=== PATIENT | male | born 1945 | race Caucasian/White ===

== ENCOUNTER → 2016-11-27 | Outpatient (CLI) | payer BC ==
[~2016-11-27] MED LIST: CALC600T9 PO; CHOL1000 PO; CYAN10004 PO; MAGN1TAB41 PO; MAGN250T8 PO; MULTTAB58 PO; OXYC-57 PO; SILO8CAP PO
[2016-11-27 10:05] LABS: CHOLESTEROL/HDL RATIO 3.3
== END | disposition home or self-care (01) ==
LOC: C.LAB1850 08:19
PROVIDERS: ATTEND Internal Medicine
DX: E21.3 Hyperparathyroidism, unspecified (principal); E55.9 Vitamin D deficiency, unspecified; Z00.00 Encounter for general adult medical examination without abnormal findings; E78.5 Hyperlipidemia, unspecified; E53.8 Deficiency of other specified B group vitamins

== ENCOUNTER → 2016-12-05 | Outpatient (CLI) | payer BC ==
[~2016-12-05] MED LIST changes: -MAGN1TAB41 PO
[2016-12-05 16:50] LABS: BASO % 0.4 %; BASO ABS # 0.04 K/uL (0-0.2); COMPLETE YES; HEMATOCRIT 43.4 % (42-52); IG% 0.4 %; LYMPH % 16.5 %; MEAN CELL VOLUME 91.9 fL (80-100); MEAN CORPUSCULAR HEMOGLOBIN 31.1 pg (25-34); MEAN CORPUSCULAR HGB CONC 33.9 g/dl (32-36); MEAN PLATELET VOLUME 11.6 fL (7.4-10.4); MONO % 6.9 %; NEUT % 63.8 %; PLATELET COUNT 325 K/uL (130-400); RED BLOOD COUNT 4.72 M/uL (4.7-6.1)
[2016-12-05 18:44] LABS: ALT/SGPT 29 U/L (12-78); AST/SGOT 12 U/L (15-37); BLOOD UREA NITROGEN 31 mg/dl (7-18); BUN/CREATININE RATIO 25.9 (10-20); CARBON DIOXIDE 25 mmol/L (21-32); CHLORIDE 110 mmol/L (98-107); GLUCOSE 101 mg/dl (70-99); POTASSIUM 4.4 mmol/L (3.5-5.1); SODIUM 142 mmol/L (136-145)
[2016-12-05 19:10] LABS: ALB/GLOB RATIO 1.3 (0.9-2)
[2016-12-05 19:11] LABS: ALKALINE PHOSPHATASE 64 U/L (45-117)
== END | disposition home or self-care (01) ==
LOC: C.LAB1850 15:35
PROVIDERS: ATTEND Internal Medicine
DX: E21.3 Hyperparathyroidism, unspecified (principal)

== ENCOUNTER → 2016-12-16 | Day surgery (SDC) | payer BC ==
[2016-12-10 08:06] VITALS: Ht 177.8 cm; Wt 90.9 kg
[~2016-12-16] VITALS: Ht 177.8 cm; Wt 90.9 kg
[~2016-12-16] MED LIST changes: +LIDOCAINE HCL 2% 2 ML VIAL (20MG/ML) ONE; +PHENYLEPHRINE 100MCG/ML 5ML SYR ONE; +PROPOFOL IV EMULSION 10 MG/ML 20 ML VIAL IV ONE; -SILO8CAP PO; +SODIUM CHLORIDE 0.9% 500ML 500 ML IV ONE
--- NOTE | 2016-12-16 15:22 | Endo History and Physical ---
History & Physical Date of Service: Dec 16, 2016. Chief Complaint: Screening Referring Physician: Ector Del Rio History of Present Illness 71 yo CM who presents for screening colonoscopy. Past Medical History Male Genitourinary Prob. Past Surgical History Hx Cardiac Surgery: No Hx Internal Defibrillator: No Hx Pacemaker: No Hx Abdominal Surgery: Yes (HERNIA REPAIR X3, COLLAPSED BOWEL REPAIR) Hx of Implantable Prosthesis: No Hx Post-Op Nausea and Vomiting: No Hx Cancer Surgery: No Hx Thoracic Surgery: No Hx Orthopedic: No Hx Urinary Tract Surgery: No Family History None Social History Smoking Status: Never Smoker Hx Substance Use: No Hx Alcohol Use: No Allergies Coded Allergies: No Known Allergies (Unverified , 12/10/16) Current Medications Reported Home Medications Medications Dose Route/Sig Max Daily Dose Days Date Category Vitamin B-12 1000 Mcg (Cyanocobalamin) 1,000 Mcg Tab 1,000 Mcg PO QAM 08/09/15 Reported Magnesium (Magnesium Oxide (Mg Supplement) 250 Mg Tab 1 Tab PO QAM 08/09/15 Reported Multivitamin (Multiple Vitamin) 1 Tab Tab 1 Tab PO QAM 08/09/15 Reported Calcium + D (Calcium Carbonate-Vitamin D) 1 Tab Tab 1 Tab PO QAM 08/09/15 Reported Vitamin D3 (Cholecalciferol) 1,000 Unit Tab 1 Tab PO QAM 08/09/15 Reported Vital Signs Weight (Kilograms): 90.91 Height (Feet): 5 Height (Inches): 10 Date Time Temp Pulse Resp B/P Pulse Ox O2 Delivery O2 Flow Rate FiO2 12/16/16 14:37 36.5 70 16 144/70 96 Room Air Physical Exam General Appearance: WD/WN, no apparent distress Respiratory/Chest: Auscultation: breath sounds normal Cardiovascular: Heart Auscultation: RRR Abdomen: Bowel Sounds: normal Inspection & Palpation: soft, non-distended, no tenderness, guarding & rebound Assessment and Plan Assessment: 71 yo CM who presents for screening colonoscopy. Plan: Proceed with colonoscopy.
--- NOTE | 2016-12-16 16:06 | Discharge Instructions ---
Endoscopy Patient Instructions Date / Procedure(s) Performed Dec 16, 2016. Colonoscopy Allergy Information Coded Allergies: No Known Allergies (Unverified , 12/10/16) Discharge Date / Findings Dec 16, 2016. Colon polyps Diverticulosis Internal hemorrhoids Medication Instructions OK to resume all medications today as prescribed Reported Home Medications Medications Dose Route/Sig Max Daily Dose Days Date Category Vitamin B-12 1000 Mcg (Cyanocobalamin) 1,000 Mcg Tab 1,000 Mcg PO QAM 08/09/15 Reported Magnesium (Magnesium Oxide (Mg Supplement) 250 Mg Tab 1 Tab PO QAM 08/09/15 Reported Multivitamin (Multiple Vitamin) 1 Tab Tab 1 Tab PO QAM 08/09/15 Reported Calcium + D (Calcium Carbonate-Vitamin D) 1 Tab Tab 1 Tab PO QAM 08/09/15 Reported Vitamin D3 (Cholecalciferol) 1,000 Unit Tab 1 Tab PO QAM 08/09/15 Reported Provider Instructions Activity Restrictions - No exercising or heavy lifting for 24 hours. - Do not drink alcohol the day of the procedure. - Do not drive a car or operate machinery until the day after the procedure. - Do not make any important decisions or sign important papers in 24 hours after the procedure. Following Day: - Return to full activity which may include returning to work/school. Diet Start your diet with liquids and light foods (jello, soup, juice, toast). Then eat your usual diet if not nauseated. Treatment For Common After Affects For mild abdominal pain, bloating, or excessive gas: - Rest - Eat lightly - Lie on right side Follow-Up Information Follow-up with Ector Del Rio as scheduled Anesthesia Information What You Should Know You have had a procedure that required some medicine to reduce anxiety and discomfort. This treatment is called moderate sedation. After receiving the treatment, you may be sleepy, but you will be able to breathe on your own. The effects of the treatment may last for several hours. Follow these instructions along with Activity/Diet recommendations noted above: * Do NOT do anything where dizziness or clumsiness would be dangerous. * Rest quietly at home today, then you can be up and about tomorrow. * Have a responsible person stay with you the rest of today. * You may have had an I.V. today. If so, you may take the dressing off later today. Recommendations Call your doctor if: * Trouble breathing * Continuous vomiting for more than 24 hours * Temperature above 101 degrees * Severe abdominal pain or bloating * Pain not relieved by pain medicine ordered * There is increased drainage or redness from any incision * A large amount of rectal bleeding greater than 2-3 tablespoons. (If you had a polyp/s removed or have hemorrhoids, a small amount of blood - from the rectum is to be expected.) * You have any unanswered questions or concerns. IN THE EVENT OF A SERIOUS EMERGENCY, GO TO THE NEAREST EMERGENCY ROOM Your discharge instructions were prepared by provider Raymundo Mcclure. Patient Instructions Signature Page Oscar Solano Patient (or Guardian) Signature/Date: I have read and understand the instructions given to me by my caregivers. Caregiver/RN/Doctor Signature/Date: The above-named patient and/or guardian has received patient instructions on this date. + Original Patient Signature Page (only) stays with chart. Please make copy for patient.
--- NOTE | 2016-12-16 16:09 | Anesthesiology Progress Note ---
Anesthesia Post Op Note Date & Time Dec 16, 2016 at 16:08 Vital Signs Vital Signs Past 12 Hours Date Time Temp Pulse Resp B/P Pulse Ox O2 Delivery O2 Flow Rate FiO2 12/16/16 14:37 36.5 70 16 144/70 96 Room Air Notes Mental Status: alert / awake / arousable, participated in evaluation Pt Amnestic to Procedure: Yes Nausea / Vomiting: adequately controlled Pain: adequately controlled Airway Patency, RR, SpO2: stable & adequate BP & HR: stable & adequate Hydration State: stable & adequate Anesthetic Complications: no major complications apparent
--- NOTE | 2016-12-16 16:27 | GI REPORT ---
Procedure Date: 12/16/2016 3:10 PM Procedure: Colonoscopy Indications: Screening for colorectal malignant neoplasm Medicines: Monitored Anesthesia Care Complications: No immediate complications. Estimated Blood Loss: Estimated blood loss: none. Procedure: Pre-Anesthesia Assessment: - Prior to the procedure, a History and Physical was performed, and patient medications and allergies were reviewed. The patient's tolerance of previous anesthesia was also reviewed. The risks and benefits of the procedure and the sedation options and risks were discussed with the patient. All questions were answered, and informed consent was obtained. Prior Anticoagulants: The patient has taken no previous anticoagulant or antiplatelet agents. ASA Grade Assessment: II - A patient with mild systemic disease. After reviewing the risks and benefits, the patient was deemed in satisfactory condition to undergo the procedure. After I obtained informed consent, the scope was passed under direct vision. Throughout the procedure, the patient's blood pressure, pulse, and oxygen saturations were monitored continuously. The scope was introduced through the anus and advanced to the terminal ileum. The colonoscopy was performed without difficulty. The patient tolerated the procedure well. The quality of the bowel preparation was good. The terminal ileum, ileocecal valve, appendiceal orifice, and rectum were photographed. Findings: Four sessile polyps were found in the transverse colon and in the ascending colon. The polyps were 5 to 7 mm in size. These polyps were removed with a hot snare. Resection and retrieval were complete. A 3 mm polyp was found in the ascending colon. The polyp was sessile. The polyp was removed with a cold biopsy forceps. Resection and retrieval were complete. To prevent bleeding after the polypectomy, two hemostatic clips were successfully placed (MR conditional). There was no bleeding at the end of the procedure. Multiple small-mouthed diverticula were found in the sigmoid colon. Non-bleeding internal hemorrhoids were found during retroflexion. The hemorrhoids were small. Impression: - Four 5 to 7 mm polyps in the transverse colon and in the ascending colon, removed with a hot snare. Resected and retrieved. - One 3 mm polyp in the ascending colon, removed with a cold biopsy forceps. Resected and retrieved. Clips (MR conditional) were placed. - Diverticulosis in the sigmoid colon. - Non-bleeding internal hemorrhoids. Recommendation: - Resume previous diet. - Continue present medications. - Repeat colonoscopy for surveillance based on pathology results. - Return to primary care physician as previously scheduled. Raymundo Mcclure, DO 12/16/2016 4:26:59 PM This report has been signed electronically. Note Initiated On: 12/16/2016 3:10 PM
[2016-12-16 16:36] VITALS: BP 142/82; PULSE 66; O2SAT 99
== END | disposition home or self-care (01) ==
LOC: C.GI 14:11
PROVIDERS: ATTEND Internal Medicine
DX: Z12.11 Encounter for screening for malignant neoplasm of colon (principal); D12.2 Benign neoplasm of ascending colon; D12.3 Benign neoplasm of transverse colon; K57.31 Diverticulosis of large intestine without perforation or abscess with bleeding; K64.8 Other hemorrhoids

== ENCOUNTER → 2017-01-16 | Outpatient (CLI) | payer BC ==
[~2017-01-16] MED LIST changes: -LIDOCAINE HCL 2% 2 ML VIAL (20MG/ML) ONE; -PHENYLEPHRINE 100MCG/ML 5ML SYR ONE; -PROPOFOL IV EMULSION 10 MG/ML 20 ML VIAL IV ONE; -SODIUM CHLORIDE 0.9% 500ML 500 ML IV ONE
== END | disposition home or self-care (01) ==
LOC: C.LAB1850 11:46
PROVIDERS: ATTEND Internal Medicine Endocrinology, Diabetes & Metabolism
DX: M81.0 Age-related osteoporosis without current pathological fracture (principal)

== ENCOUNTER → 2017-01-17 | Outpatient (CLI) | payer BC | END | disposition home or self-care (01) | LOC: C.LABPBG 13:33 | PROVIDERS: ATTEND Neuromusculoskeletal Medicine & OMM | DX: L30.9 Dermatitis, unspecified (principal); R21 Rash and other nonspecific skin eruption ==

== ENCOUNTER → 2017-03-11 | Outpatient (CLI) | payer BC | END | disposition home or self-care (01) | LOC: C.MAMM 10:08 | PROVIDERS: ATTEND Internal Medicine Endocrinology, Diabetes & Metabolism | DX: E21.3 Hyperparathyroidism, unspecified (principal) ==

== ENCOUNTER → 2017-04-08 | Outpatient (CLI) | payer BC | END | disposition home or self-care (01) | LOC: C.LABPBG 07:37 | PROVIDERS: ATTEND Internal Medicine Endocrinology, Diabetes & Metabolism | DX: M81.0 Age-related osteoporosis without current pathological fracture (principal) ==

== ENCOUNTER → 2017-04-24 | Outpatient (CLI) | payer BC | END | disposition home or self-care (01) | LOC: C.LABPBG 09:33 | PROVIDERS: ATTEND Internal Medicine Endocrinology, Diabetes & Metabolism | DX: N25.81 Secondary hyperparathyroidism of renal origin (principal); E55.9 Vitamin D deficiency, unspecified; K90.0 Celiac disease; M81.0 Age-related osteoporosis without current pathological fracture; S32.000A Wedge compression fracture of unspecified lumbar vertebra, initial encounter for closed fracture; X58.XXXA Exposure to other specified factors, initial encounter ==

== ENCOUNTER → 2017-05-14 | Outpatient (CLI) | payer BC ==
[~2017-05-14] VITALS: Ht 175.3 cm; Wt 92.7 kg
[2017-05-14 08:49] VITALS: BP 119/74; PULSE 62; Ht 175.3 cm; Wt 92.7 kg
== END | disposition home or self-care (01) ==
LOC: C.NEUR 08:13
PROVIDERS: ATTEND Internal Medicine Pulmonary Disease
DX: G47.33 Obstructive sleep apnea (adult) (pediatric) (principal)

== ENCOUNTER → 2017-06-25 | Outpatient (CLI) | payer BC ==
--- NOTE | 2017-06-26 06:38 | PAP/PSG TECHNICIAN REPORT ---
[facility] Cloth Winder Polysomnogram Report Study name: None Report date: 06/26/2017 Study date: 06/25/2017 Referring Physician: MAYUR CREWS DO, DO Name: MARYLIN RAMIREZ Interpreting Physician: Mayur Crews D.O. Date of : 1945 Cloth Winder: Emma Pope [facility]. Sex: Male Age: 71 Study Type: PSG Weight: 204 lbs Height: 71 years, Height 5' 9" BMI: 30.12 Medications: CLOBETASOL PROPIONATE 0.05% EX CREAM, TRAIMCINOLONE ACETONIDE 0.1% EX CREAM, SILDENAFIL CITRATE 20 MG, NYSTATIN [id number] UNIT/GM EX CREAM, MULTI VITS, VIT B-12 500 MCG, CALTITIOL 0.5 MCG, ECONAZOLE NITRATE 1% EX CREAM, FLUCONAZOLE 200 MG, VIT D 1000 UNIT, CALCIUM+D 600-200 MG-UNIT Patient History 71 yr-old male here for a baseline/split study. He has a history of daytime sleepiness, snoring, frequent awakenings, and witnessed apneas. His Labadie scale is 14. The test was started on room air. ETCO2 testing was not utilized during this study. Room 1 Parameters Monitored NPSG: E1-M2, E2-M1, Fp1-M2, Fp2-M1, F3-M2, F4-M2, F4-M1, C3-M2, C4-M2, C4-M1, O1-M2, O2-M2, O2-M1, T3-M2, T4-M1, P3-M2, P4-M1, CHIN1, CHIN2, HR, EKG, Legs, PFLOW, SNOR, FLOW, CFLOW, Tidal Volume, THOR, ABDO, SpO2, PLTH, CPRESS, ETCO2 Wave, ETCO2, pH Sleep Architecture Sleep Stages Time at Lights Off 10:18:54 PM STAGES Time (min.) TST (%) Time at Lights On 5:31:24 AM Wake 121.5 -- Total Recording Time (TRT) 432.50 min. N1 29.0 9 Total Sleep Period (TSP) 415.5 min. N2 220.5 71 Total Sleep Time (TST) 311.0min. N3 0.0 0 Awake Time 121.5 min. REM 61.5 20 Wake after Sleep Onset 104.5 min. Sleep Efficiency (SE) 72 % Sleep Onset Latency (DEON) 17.0 min. Number of Stage 1 Shifts None Awakenings 22 Stage Changes 92 Number of REM periods 9 REM 61.5 20 REM Latency 103.0 min. NREM 249.5 80 Body Position Analysis Supine Right Left Side Prone Vertical Total Sleep Time (min.) 156.1 145.7 47.0 192.74 0.0 0.0 Total Sleep Time (%) 38% 47% 15% 62 0% N/A% Total Sleep Time REM (min.) 25.5 25.5 10.5 None 0.0 0.0 Total Sleep Time NREM (min.) 92.8 120.2 36.5 None 0.0 0.0 Intermittent Wake (min.) 37.8 55.4 28.2 None 0.0 0.0 Total Sleep Period (%) 37% None None None None None Arousals Myoclonus (PLM) * Events Count Index Events Count Index Spontaneous 15 3 Events Awake (PLMW) 89 44.0 Respiratory 37 8.3 Events Asleep w/ Arousal (PLMA) 13 2.5 PLM 13 3 Events Asleep w/o Arousal (PLMS) 192 37.0 Snoring 9 2 Total Asleep 205 39.5 Total 73 14 Total 294 41 Respiratory Analysis * CA OA MA CH H RERA Total Count 1 48 0 0 88 11 137 Index 0.2 9.3 0.0 0 17.0 2 28.6 Mean Duration 18.3 21.3 0.0 0.00 23.6 20.2 22.6 Longest Duration 18.3 71.1 0.0 0.00 0.0 26.0 71.1 Respiratory Event Summary Total Supine ~Supine Right Left Prone REM NREM Apneas Count 49 44 5 5 0 N/A 12 37 Index 9.5 22 2 2.1 0.0 N/A 12 9 Hypopneas (4% Desat) Count 88 62 26 16 10 N/A 34 54 Index 17.0 31.5 8 6.6 12.8 N/A 33.2 13.0 Apneas & All Hypopneas Count 137 106 31 21 10 N/A 46 91 Index 26.4 54 10 9 13 N/A 44.9 21.9 Respiratory Events (Watch Crystal Cutter+All Hyp+RERA) Count 137 110 38 25 13 N/A 46 91 Index 28.6 56 12 10.3 16.6 N/A 45.9 24.3 Respiratory Related Arousal Count 37 110 13 9 4 N/A 14 29 Index 8.3 15 4 4 5 N/A 14 7 Snoring Analysis Supine Right Left Prone REM NREM Total Snore duration 46.5 min Snores count 772 597 452 N/A 403 1,418 1,821 Snore mean duration 1.5 Sec Snores index 392 246 577 N/A 393.2 341.0 351.3 TST with snoring (%) 15.0% Desaturation Event Summary: Minimum %SpO2 Event Count Mean/Min/Max Duration(sec.) Desaturation Index % Time In Bed > 90 179 25.0 / 4.8 / 60.0 31.1 84.3 86 - 90 5 19.1 / 14.5 / 23.8 4.9 15.0 81 - 85 0 N/A 0.0 0.8 76 - 80 0 N/A 0.0 0.0 71 - 75 0 N/A 0.0 0.0 66 - 70 0 N/A 0.0 0.0 61 - 65 0 N/A 0.0 0.0 56 - 60 0 N/A 0.0 0.0 51 - 55 0 N/A 0.0 0.0 < 50 0 N/A 0.0 0.0 Total REM NREM Awake <50% 0.0 min. 0.0 min. 0.0 min. 0.0 min. 51 - 60% 0.0 min. 0.0 min. 0.0 min. 0.0 min. 61 - 70% 0.0 min. 0.0 min. 0.0 min. 0.0 min. 71 - 80% 0.0 min. 0.0 min. 0.0 min. 0.0 min. 81 - 90% 64.5 min. 13.0 min. 35.4 min. 16.2 min. 91 - 100% 345.2 min. 48.5 min. 214.1 min. 82.5 min. Average 92 92 92 92 Minimum SpO2 81 81 82 84 Desaturation Event Index 25.1 42.9 23.1 21.2 # Desat. Events below 89% 47 22 17 8 Time(%) with Saturation below 89% 3.1 1.6 0.8 0.7 Time(min.) with Saturation below 89% 12.7 6.5 3.1 3.0 Time (mins) REM (mins) NREM (mins) % of TST SpO2 Below 90% 110 33 N77 6.7 SpO2 Below 88% 16 0 0 2 Heart Rate Analysis Min (bpm) Max (bpm) Average (bpm) Awake 42 127 61 NREM 47 88 56 REM 40 79 53 Overall 40 88 56 Supplemental O2 Values Minimum O2 level: None Value Start Time End Time Cloth Winder Comments Mr. Ramirez slept in the right, left, and supine positions. Occasional cardiac arrhythmias were noted (please refer to the print out). PLMs were noted. No bruxism noted. Snoring was noted and scored as a 2 on a scale of 1 through 5. (0=no snoring, 5=snoring loud enough to be heard through a closed door or down the [address] way) He did not meet specific Split-Night criteria during the diagnostic portion of this study. He awoke to use the restroom four times during the night. Mr. Ramirez stated that he slept about the same as usual. The final report will be interpreted and signed by a sleep physician. The completed physician report will then be placed in the patient medical record. Therapy (cm H2O) 0 TIB (min.) 432.5 TST (min.) 311.0 Sleep Onset (min.) 17.0 REM Onset From Sleep (min.) 103.0 Sleep Efficiency % 72 Wakefulness (%) 28 Wakefulness (min.) 121.5 NREM 1 (%) 9 NREM 1 (min.) 29.0 NREM 2 (%) 71 NREM 2 (min.) 220.5 NREM 3 (%) 0 NREM 3 (min.) 0.0 REM (%) 20 REM (min.) 61.5 # Arousals 73 Arousal Index 14 # Snore 1,821 Snore Index 351.3 AHI 26.4 AHI Supine 54 AHI Non-Supine 10 NREM AHI 21.9 REM AHI 44.9 RDI 28.6 # Obstructive Apnea 48 # Central Apnea 1 # Mixed Apnea 0 # Hypopneas 88 RERAs 11 Total Respiratory Events 151 Time Below SpO2 89% (min.) 9.6 Mean NREM SpO2 (%) 92 Mean REM SpO2 (%) 92 Mean Sleep SpO2 (%) 92 Min NREM SpO2 (%) 82 Min REM SpO2 (%) 81 Position Supine (min.) 156.1 Position Non-supine (min.) 192.7 LM Index Sleep 39.5 LM Index NREM 47.9 LM Index REM 5.9 Mean Heart Rate (bpm) 56 Min Heart Rate (bpm) 40
--- NOTE | 2017-06-28 11:01 | Sleep Study ---
Sleep Study Report Date of Service: 06/25/2017 Sleep Study Report Clinical data: Patient is a 71-year-old male with a history of snoring, disturbed nocturnal sleep, and observed apneas. His Belmont score is 14 out of a possible 24. His BMI is 30.12. He is referred by Dr. Ector Del Rio. Sleep architecture: The total sleep period is 415.5 minutes. The total sleep time was 311.0 minutes. Sleep efficiency was moderately reduced to 72 percent. Sleep latency was normal at 17 minutes. Wake after sleep onset was elevated 104.5 minutes. The REM latency was 103 minutes. Sleep consisted of stage N1 9 percent, stage N2 71 percent, stage N3 0 percent, and stage REM 20 percent. Arousal data: Patient had a total of 73 arousals including 15 spontaneous arousals, 37 respiratory arousals, 13 PLM arousals, and 9 snoring arousals. The arousal index was 14. PLM data: The patient had a total of 205 periodic limb movements of sleep for a PLM index of 39.5. There were 13 arousals associated with limb movements for a PLM arousal index of only 2.5. EKG: The underlying cardiac rhythm was normal sinus. The cardiac rates ranged from 40 to 88 beats per minute. The average heart rate was 56 beats per minute. There were a mild number of extrasystoles that appeared to be PACs. Respiratory data: The patient had a total of 137 respiratory events including 1 central apnea, 48 obstructive apneas, and 88 hypopneas. Hypopneas were scored according to the 4 percent desaturation rule. He also had 11 RERAs. The apnea-hypopnea index was moderately elevated at 26.4 events per hour. The mean duration of the apneas was 21.3 seconds. The mean duration of the hypopneas was 23.6 seconds. These results suggest moderate sleep apnea. Oximetry data: The average saturation for the night was 92 percent. The minimum saturation was 81 percent. The patient had a total of 12.7 minutes with saturations less than 89 percent. Acute Care Surgeon comments: The patient slept on the right, left, and supine positions. Occasional cardiac arrhythmias were noted. PLMS were noted. No bruxism noted. Snoring was noted and scored as a 2 on a scale of 1 through 5. The patient awoke to use the restroom 4 times during the night. Impressions: 1. Obstructive sleep apnea-moderate 2. Periodic limb movement disorder Comments: The patient has moderate sleep apnea. His sleep efficiency was moderately decreased. There were relatively mild oxygen desaturations. Occasional PACs were noted. Some of the respiratory events were prolonged. There was an increase in respiratory events during REM and supine. The apnea-hypopnea index supine was 54 in the apnea-hypopnea index during REM sleep was 44.9. In light of the patient's symptoms he clearly has an indication for treatment. Recommendations: 1. It is suggested that the patient be given a trial of nasal CPAP. The options would be to have a CPAP titration in the sleep lab versus treatment with auto CPAP. 2. It is advised that the patient avoid sleeping in the supine position. He had a definite increase in respiratory events when supine. 3. Weight loss is advised in light of the elevation of BMI of 30.12. 4. Further recommendations will be made following the trial of nasal CPAP. 5. No treatment is necessary at present for the underlying limb movement disorder. The sleep disordered breathing should be treated 1st and then clinical correlation will be required. Copies To 1: Mayur Prieto DO; Ector Del Rio M.D.
== END | disposition home or self-care (01) ==
LOC: C.NEUR 20:00
PROVIDERS: ATTEND Internal Medicine Pulmonary Disease
DX: G47.33 Obstructive sleep apnea (adult) (pediatric) (principal)

== ENCOUNTER 2017-08-01 10:37 | Observation (INO) | payer BC ==
[~2017-08-01] VITALS: Ht 175.3 cm; Wt 89.1 kg
[2017-08-01] VITALS (7 sets, daily range): BP systolic 122–148; BP diastolic 68–75; PULSE 57–68; TEMP 36.4–36.7; O2SAT 92–100; Ht 175.3 cm; Wt 89.1 kg
[~2017-08-01 10:37] MED LIST changes: -OXYC-57 PO
[2017-08-01] MEDS ORDERED: FENTANYL CITRATE INJ 50 MCG/1 ML 2 ML VIAL IV STA (11:00)
[2017-08-01] MEDS ORDERED: ONDANSETRON INJ 2 MG/ML 2 ML VIAL IV STA (11:00)
--- NOTE | 2017-08-01 11:02 | EMERGENCY ROOM VISIT NOTE ---
History Report prepared by Lizetibsebastien: Shahnaz Marquis Under the Supervision of: Dr. Natalio Coyne M.D. First contact with patient: 10:55 Chief Complaint: FLANK PAIN Stated Complaint: SEVERE ABDOMINAL PAIN ON RIGHT SIDE History of Present Illness The patient is a 72 year old male who presents to the Emergency Room with complaints of constant flank pain and left shoulder pain beginning 2 hours ago. The patient notes an episode of vomiting, chills, and shortness of breath. He denies any fever. The patient denies ever feeling like this before. The patient had swelling in his legs which is baseline for him. Source of History: patient Onset: 2 hours ago Position: shoulder (left), other (flank pain) Timing: constant Associated Symptoms: + chills, + SOB, + vomiting, No fevers Review of Systems See HPI for pertinent positives and negatives. A total of ten systems were reviewed and were otherwise negative. Past Medical & Surgical Medical Problems: (1) Cardiac Murmurs Nec (2) History of repair of inguinal hernia (3) Hyperlipidemia Nec/Nos (4) Irritable Bowel Syndrome Family History Cancer Heart disease Social History Smoking Status: Former Smoker Alcohol Use: none Marital Status: Housing Status: lives with family Occupation Status: employed Current/Historical Medications Scheduled Calcium Carbonate-Vitamin D (Calcium + D), 1 TAB PO QAM Cyanocobalamin (Vitamin B-12 1000 Mcg), 1,000 MCG PO QAM Multiple Vitamin (Multivitamin), 1 TAB PO QAM Allergies Coded Allergies: No Known Allergies (Unverified , 08/01/17) Physical Exam Vital Signs Date Time Temp Pulse Resp B/P (MAP) Pulse Ox O2 Delivery O2 Flow Rate FiO2 08/01/17 16:11 36.2 65 16 134/78 (96) 95 Room Air 08/01/17 15:57 69 18 128/72 98 Room Air 08/01/17 14:16 65 16 133/75 94 Room Air 08/01/17 13:43 71 08/01/17 13:34 73 18 133/72 98 Room Air 08/01/17 12:00 63 18 126/77 96 Room Air 08/01/17 11:16 66 18 128/74 95 Room Air 08/01/17 11:09 95 Room Air 08/01/17 11:00 71 08/01/17 10:39 36.7 79 18 150/86 95 Room Air Physical Exam GENERAL: Awake, alert, well-appearing, in no distress HENT: Normocephalic, atraumatic. Oropharynx unremarkable. Dry MM. EYES: Normal conjunctiva. Sclera non-icteric. NECK: Supple. No nuchal rigidity. FROM. No JVD. RESPIRATORY: Clear to auscultation. CARDIAC: Regular rate, normal rhythm. Extremities warm and well perfused. Pulses equal. ABDOMEN: Soft, non-distended. No rebound or guarding. No masses. Right flank and lower abdominal tenderness. Negative Carranza's, no peritoneal signs. RECTAL: Deferred. MUSCULOSKELETAL: Chest examination reveals no tenderness. The back is symmetrical on inspection without obvious abnormality. There is no CVA tenderness to palpation. No joint edema. LOWER EXTREMITIES: Calves are equal size bilaterally and non-tender. No edema. No discoloration. NEURO: Normal sensorium. No sensory or motor deficits noted. SKIN: No rash or jaundice noted. Medical Decision & Procedures ER Provider Diagnostic Interpretation: Radiology results as stated below per my review and radiologist interpretation: CHEST ONE VIEW PORTABLE FINDINGS: There is no pneumothorax or pleural effusion. Pulmonary vascularity is normal. There is no consolidation to suggest pneumonia. Cardiomediastinal silhouette is stable. Mild prominence of the contour for the main/left pulmonary artery is unchanged. A suspected nipple shadow projects over the right lower lung. IMPRESSION: 1. No acute cardiopulmonary findings. 2. 1.4 cm nodular density which projects over the right lower lung. A nipple shadow is favored. However, follow-up PA and shallow oblique radiographs of the chest with nipple markers are recommended for confirmation. Electronically signed by: Matthew Glass M.D. CT OF THE ABDOMEN AND PELVIS WITH CONTRAST FINDINGS: A 6 mm left lower lobe nodule is stable since earlier studies. This is benign given stability. There is a 1.3 cm left hepatic lobe cyst. A few additional subcentimeter hepatic lesions are too small to characterize but are likely benign. There is no peripancreatic or pericholecystic infiltration. The spleen, adrenal glands and right kidney are normal. There is a subcentimeter hypodense left renal lesion which likely reflects a cyst. A 2 mm left renal calculus is noted. There are no ureteral calculi. No hydronephrosis is present. There is no evidence for a bowel obstruction. Note is made of a blind ending tubular structure arising from the cecum shown on axial image 190 of 451 which measures 2.2 cm in caliber. This likely reflects an abnormal appendix. There is possible minimal periappendiceal infiltration. There is no free air or abscess. There are no suspicious osseous lesions. IMPRESSION: Abnormal appendix which measures 2.2 cm in caliber with minimal periappendiceal infiltration. The findings suggest early acute appendicitis and the appearance of the appendix raises the possibility of an underlying appendiceal lesion. Surgical consultation is recommended. No free air or abscess. Electronically signed by: Matthew Glass M.D. Laboratory Results 08/01/17 11:05 Red Blood Count 4.56, Mean Corpuscular Volume 97.1, Mean Corpuscular Hemoglobin 30.9, Mean Corpuscular Hemoglobin Concent 31.8, Mean Platelet Volume 11.6, Neutrophils (%) (Auto) 70.0, Lymphocytes (%) (Auto) 11.3, Monocytes (%) (Auto) 7.6, Eosinophils (%) (Auto) 10.2, Basophils (%) (Auto) 0.4, Neutrophils # (Auto ) 5.97, Lymphocytes # (Auto) 0.96, Monocytes # (Auto) 0.65, Eosinophils # (Auto ) 0.87, Basophils # (Auto) 0.03 08/01/17 11:05 Test 08/01/17 10:55 08/01/17 11:05 Urine Color DK YELLOW Urine Appearance CLOUDY (CLEAR) Urine pH 5.0 (4.5-7.5) Urine Specific [place] 1.022 (1.000-1.030) Urine Protein NEG (NEG) Urine Glucose (UA) NEG (NEG) Urine Ketones NEG (NEG) Urine Occult Blood NEG (NEG) Urine Nitrite NEG (NEG) Urine Bilirubin NEG (NEG) Urine Urobilinogen NEG (NEG) Urine Leukocyte Esterase NEG (NEG) Urine WBC (Auto) 1-5 /hpf (0-5) Urine RBC (Auto) 0-4 /hpf (0-4) Urine Hyaline Casts (Auto) 1-5 /lpf (0-5) Urine Epithelial Cells (Auto) 0-5 /lpf (0-5) Urine Bacteria (Auto) NEG (NEG) White Blood Count 8.52 K/uL (4.8-10.8) Red Blood Count 4.56 M/uL (4.7-6.1) Hemoglobin 14.1 g/dL (14.0-18.0) Hematocrit 44.3 % (42-52) Mean Corpuscular Volume 97.1 fL (80-100) Mean Corpuscular Hemoglobin 30.9 pg (25-34) Mean Corpuscular Hemoglobin Concent 31.8 g/dl (32-36) Platelet Count 243 K/uL (130-400) Mean Platelet Volume 11.6 fL (7.4-10.4) Neutrophils (%) (Auto) 70.0 % Lymphocytes (%) (Auto) 11.3 % Monocytes (%) (Auto) 7.6 % Eosinophils (%) (Auto) 10.2 % Basophils (%) (Auto) 0.4 % Neutrophils # (Auto) 5.97 K/uL (1.4-6.5) Lymphocytes # (Auto) 0.96 K/uL (1.2-3.4) Monocytes # (Auto) 0.65 K/uL (0.11-0.59) Eosinophils # (Auto) 0.87 K/uL (0-0.5) Basophils # (Auto) 0.03 K/uL (0-0.2) RDW Standard Deviation 49.3 fL (36.4-46.3) RDW Coefficient of Variation 13.8 % (11.5-14.5) Immature Granulocyte % (Auto) 0.5 % Immature Granulocyte # (Auto) 0.04 K/uL (0.00-0.02) Anion Gap 6.0 mmol/L (3-11) Est Creatinine Clear Calc Drug Dose 69.0 ml/min Estimated GFR () 78.4 Estimated GFR (Non- 67.7 BUN/Creatinine Ratio 21.0 (10-20) Calcium Level 8.8 mg/dl (8.5-10.1) Total Bilirubin 0.7 mg/dl (0.2-1) Direct Bilirubin mg/dl (0-0.2) Aspartate Amino Transf (AST/SGOT) 23 U/L (15-37) Alanine Aminotransferase (ALT/SGPT) 34 U/L (12-78) Alkaline Phosphatase 65 U/L (45-117) Troponin I < 0.015 ng/ml (0-0.045) Pro-B-Type Natriuretic Peptide 629 pg/ml (0-900) Total Protein 6.6 gm/dl (6.4-8.2) Albumin 3.6 gm/dl (3.4-5.0) Lipase 111 U/L (73-393) Chemistry Specimen Hemolysis Laboratory results reviewed by me Medications Administered Medications (Trade) Dose Ordered Sig/Letha Route Start Time Stop Time Status Last Admin Dose Admin Ondansetron HCl (Zofran Inj) 4 mg NOW STAT IV 08/01/17 11:00 08/01/17 11:03 DC 08/01/17 11:15 4 MG Fentanyl Citrate (Fentanyl Inj) 50 mcg NOW STAT IV 08/01/17 11:00 08/01/17 11:03 DC 08/01/17 11:16 50 MCG Sodium Chloride 1,000 ml @ 125 mls/hr Q8H STAT IV 08/01/17 14:34 08/01/17 19:30 DC 08/01/17 15:16 125 MLS/HR Ceftriaxone Sodium (Rocephin Inj) 1 gm NOW STAT IV 08/01/17 14:34 08/01/17 14:36 DC 08/01/17 15:17 1 GM Metronidazole (Flagyl / Nss) 500 mg NOW STAT IV 08/01/17 14:34 08/01/17 14:36 DC 08/01/17 15:18 500 MG Bupivacaine HCl (Marcaine 0.5% MPF Inj) 30 ml STK-MED ONCE .ROUTE 08/01/17 16:11 08/01/17 16:12 DC 08/01/17 17:35 27 ML ECG Indication: abdominal pain Rate (beats per minute): 71 Rhythm: normal sinus Findings: LAFB, no acute ischemic change, left axis deviation Comparison ECG Date: 07/17/15 Change: no significant change (Conduction delay similar to previous) ED Course 1057: The patient was evaluated in room A12B. A complete history and physical exam was performed. 1100: Fentanyl Citrate 50 mcg IV, Zofran Inj 4 mg IV. 1415: Ioversol 100 ml IV. 1434: Flagyl/Nss 500 mg IV, Rocephin Inj 1 gm IV, Sodium Chloride 1000 ml @ 125 mls/hr IV. 1436: I discussed the patient's case with Dr. Barrera-Surgery. The patient will be evaluated to further management. 1440: I updated the patient with his test results. 1500: Upon reexamination, the patient was resting. I discussed the test results and treatment plan with him. The patient will be evaluated for further management. Medical Decision I reviewed the patient's past medical history, medications, and the nursing notes as described above. Differential diagnosis: cholecystitis, appendicitis, diverticulitis, kidney stone, pyelonephritis, bronchitis, PE, and pneumonia. The patient is a 72-year-old gentleman who presents to emergency department with worsening right flank pain nausea and shortness of breath per history of present illness. On arrival the patient is uncomfortable in mild distress, otherwise afebrile with stable vital signs. Exam the patient has mild to moderate tenderness in the right flank and right lower quadrant. No Carranza sign. CT abdomen and pelvis showing signs of early acute appendicitis. Was given ceftriaxone and Flagyl. This was discussed with surgery who will admit the patient for likely surgery. Medication Reconcilliation Current Medication List: was personally reviewed by me Blood Pressure Screening Patient's blood pressure: Elevated blood pressure Consults Time Called: 1430 Consulting Physician: Dr. Barrera-Surgery Returned Call: [phone] Discussed the patient's case. The patient will be evaluated for further treatment and disposition. Impression Primary Impression: Appendicitis Scribe Attestation The scribe's documentation has been prepared under my direction and personally reviewed by me in its entirety. I confirm that the note above accurately reflects all work, treatment, procedures, and medical decision making performed by me. Departure Information Dispostion Being Evaluated By Hospitalist Referrals Ector Del Rio M.D. (PCP) Patient Instructions My [facility]
[2017-08-01 11:37] LABS: BASO % 0.4 %; BASO ABS # 0.03 K/uL (0-0.2); COMPLETE YES; EOS % 10.2 %; HEMATOCRIT 44.3 % (42-52); IG% 0.5 %; LYMPH % 11.3 %; LYMPH ABS # 0.96 K/uL (1.2-3.4); MEAN CELL VOLUME 97.1 fL (80-100); MEAN CORPUSCULAR HEMOGLOBIN 30.9 pg (25-34); MEAN CORPUSCULAR HGB CONC 31.8 g/dl (32-36); MEAN PLATELET VOLUME 11.6 fL (7.4-10.4); MONO % 7.6 %; PLATELET COUNT 243 K/uL (130-400); RED BLOOD COUNT 4.56 M/uL (4.7-6.1); WHITE BLOOD COUNT 8.52 K/uL (4.8-10.8)
[2017-08-01 11:39] LABS: URINE APPEARANCE CLOUDY (CLEAR); URINE BILIRUBIN NEG (NEG); URINE COLOR DK YELLOW; URINE EPITHELIAL CELL AUTO 0-5 /lpf (0-5); URINE NITRITE NEG (NEG); URINE SPECIFIC GRAVITY 1.022 (1.000-1.030); UROBILINOGEN NEG (NEG); ZZUR CULT IF INDIC CLEAN CATCH NO
[2017-08-01 11:47] LABS: MANUAL MICROSCOPIC REQUIRED? NO; REVIEW REQ? NO
--- NOTE | 2017-08-01 11:51 | DIAGNOSTIC IMAGING REPORT ---
CHEST ONE VIEW PORTABLE CLINICAL HISTORY: Chest pain. COMPARISON STUDY: Chest radiograph January 12, 2013. FINDINGS: There is no pneumothorax or pleural effusion. Pulmonary vascularity is normal. There is no consolidation to suggest pneumonia. Cardiomediastinal silhouette is stable. Mild prominence of the contour for the main/left pulmonary artery is unchanged. A suspected nipple shadow projects over the right lower lung. IMPRESSION: 1. No acute cardiopulmonary findings. 2. 1.4 cm nodular density which projects over the right lower lung. A nipple shadow is favored. However, follow-up PA and shallow oblique radiographs of the chest with nipple markers are recommended for confirmation. Electronically signed by: Matthew Glass M.D. 08/01/2017 11:50 AM Dictated Date/Time: 08/01/2017 11:46 AM
[2017-08-01 12:13] LABS: ALKALINE PHOSPHATASE 65 U/L (45-117); ALT/SGPT 34 U/L (12-78); AST/SGOT 23 U/L (15-37); BLOOD UREA NITROGEN 23 mg/dl (7-18); CALCIUM 8.8 mg/dl (8.5-10.1); CARBON DIOXIDE 26 mmol/L (21-32); CHLORIDE 110 mmol/L (98-107); GLUCOSE 84 mg/dl (70-99); POTASSIUM 4.4 mmol/L (3.5-5.1); SODIUM 142 mmol/L (136-145)
[2017-08-01] MEDS ORDERED: OPTIRAY 320 IV PRN (14:15)
--- NOTE | 2017-08-01 14:31 | DIAGNOSTIC IMAGING REPORT ---
CT OF THE ABDOMEN AND PELVIS WITH CONTRAST CLINICAL HISTORY: Right flank pain, diarrhea, nausea and vomiting. COMPARISON STUDY: CT of the abdomen and pelvis August 26, 2012 and right upper quadrant ultrasound June 05, 2016. TECHNIQUE: Following IV administration of 94 mL of Optiray-320, axial images of the abdomen and pelvis were obtained from the lung bases to the proximal femurs. Images were reviewed in the axial, sagittal, and coronal planes. IV contrast was administered without complication. A dose lowering technique was utilized adhering to the principles of ALARA. CT DOSE: 562.28 mGy.cm FINDINGS: A 6 mm left lower lobe nodule is stable since earlier studies. This is benign given stability. There is a 1.3 cm left hepatic lobe cyst. A few additional subcentimeter hepatic lesions are too small to characterize but are likely benign. There is no peripancreatic or pericholecystic infiltration. The spleen, adrenal glands and right kidney are normal. There is a subcentimeter hypodense left renal lesion which likely reflects a cyst. A 2 mm left renal calculus is noted. There are no ureteral calculi. No hydronephrosis is present. There is no evidence for a bowel obstruction. Note is made of a blind ending tubular structure arising from the cecum shown on axial image 190 of 451 which measures 2.2 cm in caliber. This likely reflects an abnormal appendix. There is possible minimal periappendiceal infiltration. There is no free air or abscess. There are no suspicious osseous lesions. IMPRESSION: Abnormal appendix which measures 2.2 cm in caliber with minimal periappendiceal infiltration. The findings suggest early acute appendicitis and the appearance of the appendix raises the possibility of an underlying appendiceal lesion. Surgical consultation is recommended. No free air or abscess. Electronically signed by: Matthew Glass M.D. 08/01/2017 2:29 PM Dictated Date/Time: 08/01/2017 2:14 PM
[2017-08-01] MEDS ORDERED: SODIUM CHLORIDE 0.9% 1000ML 1,000 ML IV STA (14:34)
[2017-08-01] MEDS ORDERED: CEFTRIAXONE SOD INJ 1 GM ADDVIAL IV STA (14:34)
[2017-08-01] MEDS ORDERED: METRONIDAZOLE 500MG / 100ML NSS IV STA (14:34)
--- NOTE | 2017-08-01 15:04 | History and Physical ---
History & Physical Date & Time of Service: Aug 01, 2017 at 14:59 Chief Complaint: Severe Abdominal Pain On Right Side Primary Care Physician: Ector Del Rio M.D. History of Present Illness Source: patient 72 yr old man with history of lysis of adhesions presents with right flank pain for the past few hours. Very uncomfortable at times, now 5/10, radiates around to the right abdomen, worse with activity. Had a bout of diarrhea and vomiting following eating cheerios at 7 am. No fevers/ chills. No relieving factors. Pain is sharp, constant. CT scan showed possible early acute appendicitis. No similar episodes in past. Prior cscope 1 yr ago and was OK. Past Medical/Surgical History Medical Problems: (1) Cardiac Murmurs Nec Status: Chronic (2) History of repair of inguinal hernia Status: Resolved (3) Hyperlipidemia Nec/Nos Status: Chronic (4) Irritable Bowel Syndrome Status: Chronic s/p exploratory laparotomy and TINO for bowel obstruction by myself back in 2013 hernia repairs x 3 Family History Cancer Heart disease Social History Smoking Status: Former Smoker Marital Status: Occupational Status: employed Immunizations History of Influenza Vaccine: No History of Tetanus Vaccine?: Unknown History of Pneumococcal: No History of Hepatitis B Vaccine: Yes Multi-Drug Resistant Organisms History of MDRO: No Allergies Coded Allergies: No Known Allergies (Unverified , 08/01/17) Home Medications Scheduled Calcium Carbonate-Vitamin D (Calcium + D), 1 TAB PO QAM Cyanocobalamin (Vitamin B-12 1000 Mcg), 1,000 MCG PO QAM Multiple Vitamin (Multivitamin), 1 TAB PO QAM Review of Systems Constitutional: No problem reported Eyes: No problem reported ENT: No problem reported Respiratory: No problem reported Cardiovascular: No problem reported Abdomen: + pain, + vomiting, + diarrhea Musculoskeletal: + swelling (lower extremities - chronic) Genitourinary - Male: No problem reported Neurologic: No problem reported Psychiatric: No problem reported Endocrine: No problem reported Hematologic / Lymphatic: No problem reported Integumentary: No problem reported Allergic / Immunologic: No problem reported Physical Exam Vital Signs Date Time Temp Pulse Resp B/P (MAP) Pulse Ox O2 Delivery O2 Flow Rate FiO2 08/01/17 14:16 65 16 133/75 94 Room Air 08/01/17 13:43 71 08/01/17 13:34 73 18 133/72 98 Room Air 08/01/17 12:00 63 18 126/77 96 Room Air 08/01/17 11:16 66 18 128/74 95 Room Air 08/01/17 11:09 95 Room Air 08/01/17 11:00 71 08/01/17 10:39 36.7 79 18 150/86 95 Room Air General Appearance: WD/WN, no apparent distress Head: normocephalic, atraumatic Eyes: normal inspection, PERRL ENT: hearing grossly normal Neck: supple, trachea midline Respiratory/Chest: normal breath sounds, no respiratory distress, no accessory muscle use Cardiovascular: regular rate, rhythm, no JVD, no murmur Abdomen/GI: normal bowel sounds, non tender, soft, no organomegaly Back: normal inspection, no muscle spasm Extremities/Musculoskelatal: normal inspection, no calf tenderness Neurologic/Psych: alert, normal mood/affect, oriented x 3 Skin: normal color, warm/dry Diagnostics Laboratory Results Results Past 24 Hours Test 08/01/17 10:55 08/01/17 11:05 Range/Units Urine Color DK YELLOW Urine Appearance CLOUDY CLEAR Urine pH 5.0 4.5-7.5 Urine Specific [place] 1.022 1.000-1.030 Urine Protein NEG NEG Urine Glucose (UA) NEG NEG Urine Ketones NEG NEG Urine Occult Blood NEG NEG Urine Nitrite NEG NEG Urine Bilirubin NEG NEG Urine Urobilinogen NEG NEG Urine Leukocyte Esterase NEG NEG Urine WBC (Auto) 1-5 0-5 /hpf Urine RBC (Auto) 0-4 0-4 /hpf Urine Hyaline Casts (Auto) 1-5 0-5 /lpf Urine Epithelial Cells (Auto) 0-5 0-5 /lpf Urine Bacteria (Auto) NEG NEG White Blood Count 8.52 4.8-10.8 K/uL Red Blood Count 4.56 4.7-6.1 M/uL Hemoglobin 14.1 14.0-18.0 g/dL Hematocrit 44.3 42-52 % Mean Corpuscular Volume 97.1 80-100 fL Mean Corpuscular Hemoglobin 30.9 25-34 pg Mean Corpuscular Hemoglobin Concent 31.8 32-36 g/dl Platelet Count 243 130-400 K/uL Mean Platelet Volume 11.6 7.4-10.4 fL Neutrophils (%) (Auto) 70.0 % Lymphocytes (%) (Auto) 11.3 % Monocytes (%) (Auto) 7.6 % Eosinophils (%) (Auto) 10.2 % Basophils (%) (Auto) 0.4 % Neutrophils # (Auto) 5.97 1.4-6.5 K/uL Lymphocytes # (Auto) 0.96 1.2-3.4 K/uL Monocytes # (Auto) 0.65 0.11-0.59 K/uL Eosinophils # (Auto) 0.87 0-0.5 K/uL Basophils # (Auto) 0.03 0-0.2 K/uL RDW Standard Deviation 49.3 36.4-46.3 fL RDW Coefficient of Variation 13.8 11.5-14.5 % Immature Granulocyte % (Auto) 0.5 % Immature Granulocyte # (Auto) 0.04 0.00-0.02 K/uL Sodium Level 142 136-145 mmol/L Potassium Level 4.4 3.5-5.1 mmol/L Chloride Level 110 98-107 mmol/L Carbon Dioxide Level 26 21-32 mmol/L Anion Gap 6.0 3-11 mmol/L Blood Urea Nitrogen 23 7-18 mg/dl Creatinine 1.10 0.60-1.40 mg/dl Est Creatinine Clear Calc Drug Dose 69.0 ml/min Estimated GFR () 78.4 Estimated GFR (Non- 67.7 BUN/Creatinine Ratio 21.0 10-20 Random Glucose 84 70-99 mg/dl Calcium Level 8.8 8.5-10.1 mg/dl Total Bilirubin 0.7 0.2-1 mg/dl Direct Bilirubin 0-0.2 mg/dl Aspartate Amino Transf (AST/SGOT) 23 15-37 U/L Alanine Aminotransferase (ALT/SGPT) 34 12-78 U/L Alkaline Phosphatase 65 45-117 U/L Troponin I < 0.015 0-0.045 ng/ml Pro-B-Type Natriuretic Peptide 629 0-900 pg/ml Total Protein 6.6 6.4-8.2 gm/dl Albumin 3.6 3.4-5.0 gm/dl Lipase 111 73-393 U/L Chemistry Specimen Hemolysis Diagnostic Radiology CT scan shows 2.2 cm dilated appendix with mild periappendiceal inflammation c/ w early acute appendicitis. Impression Assessment and Plan 72 yr old man with right flank pain, vomiting, diarrhea and CT scan showing a dilated appendix with mild periappendiceal inflammation. No leukocytosis or fever. Prior midline incision from exp lap. Appendectomy recommended - discussed possibility that this may be done open if he has too much adhesive disease from prior surgery. Risks of bleeding, infection, conversion to open all reviewed. Consent signed.
[2017-08-01] MEDS ORDERED: ONDANSETRON INJ 2 MG/ML 2 ML VIAL ONE (15:52)
[2017-08-01] MEDS ORDERED: LIDOCAINE HCL 2% 2 ML VIAL (20MG/ML) ONE (15:52)
[2017-08-01] MEDS ORDERED: DEXAMETHASONE SOD INJ 4 MG/ML VIAL ONE (15:52)
[2017-08-01] MEDS ORDERED: GLYCOPYRROLATE INJ 0.2 MG/ML VIAL ONE (15:52)
[2017-08-01] MEDS ORDERED: EpHEDrine SULFATE INJ 50 MG/ML AMP ONE (15:52)
[2017-08-01] MEDS ORDERED: NEOSTIGMINE METHYLSULFATE 5 MG/5 ML SYR ONE (15:52)
[2017-08-01] MEDS ORDERED: PHENYLEPHRINE HCL INJ 10 MG/ML VIAL ONE (15:52)
[2017-08-01] MEDS ORDERED: SUCCINYLCHOLINE CHLORIDE 20 MG/ML 10 ML VIAL IV ONE (15:52)
[2017-08-01] MEDS ORDERED: ROCURONIUM BROMIDE 10 MG/ML 5 ML VIAL IV ONE (15:52)
[2017-08-01] MEDS ORDERED: PROPOFOL IV EMULSION 10 MG/ML 20 ML VIAL IV ONE ×2 (15:52→18:02)
[2017-08-01] MEDS ORDERED: MIDAZOLAM HCL 1 MG/ML 2ML VIAL ONE (15:53)
[2017-08-01] MEDS ORDERED: FENTANYL CITRATE INJ 50 MCG/1 ML 2 ML VIAL ONE (15:53)
[2017-08-01] MEDS ORDERED: BUPIVACAINE 0.5 % 5 MG/1 ML MPF 30ML VIAL ONE (16:11)
[2017-08-01] MEDS ORDERED: PHENYLEPHRINE 100MCG/ML 5ML SYR IV PRN ×2 (16:15→17:15)
[2017-08-01] MEDS ORDERED: ONDANSETRON INJ 2 MG/ML 2 ML VIAL IV PRN ×3 (16:15→17:45)
[2017-08-01] MEDS ORDERED: EpHEDrine SULFATE INJ 50 MG/ML AMP IV PRN ×2 (16:15→17:15)
[2017-08-01] MEDS ORDERED: HYDROmorphone INJ 2 MG/ML SYR/VIAL IV PRN ×2 (16:15→17:15)
[2017-08-01] MEDS ORDERED: ATROPINE SULFATE 0.1 MG/ML 5ML SYR IV PRN ×2 (16:15→17:15)
--- NOTE | 2017-08-01 17:42 | [facility] Post Operative Brief Note ---
Immediate Operative Summary Operative Date Aug 01, 2017. Pre-Operative Diagnosis Acute Appendicitis Post-Operative Diagnosis same Procedure(s) Performed Laparoscopic Appendectomy Surgeon Dr. Juliann Villatoro Stave Saw Operator Surgeon(s) none Estimated Blood Loss 5ml Findings very dilated appendix with significant thickening of mesentery Specimens a. appendix Drains none Anesthesia GET Complication(s) None Disposition Recovery Room / PACU
[2017-08-01] MEDS ORDERED: MoRPHine SULFATE 2 MG/ML CARP IV PRN ×3 (17:45)
[2017-08-01] MEDS ORDERED: ACETAMINOPHEN 325 MG TAB PO PRN (17:45)
[2017-08-01] MEDS ORDERED: OXYCODONE/ACETAMINOPHEN 5-325 TAB PO PRN ×2 (17:45)
--- NOTE | 2017-08-01 17:49 | Discharge Instructions ---
Discharge Instructions Date of Service Aug 01, 2017. Admission Reason for Admission: Severe Abdominal Pain On Right Side Discharge Discharge Diagnosis / Problem: ACUTE APPENDICITIS Discharge Goals Goal(s): Decrease discomfort Activity Recommendations Activity Limitations: resume your previous activity (walking/ stairs are OK today) Lifting Limitations: no more than 10 pounds (for 2 wks) Exercise/Sports Limitations: until after follow-up appointment May Resume Sexual Activity: after two weeks Shower/Bathe: tomorrow (remove outer dressings prior to shower, leave steristrips) Driving or Machine Use: resume 3 days after discharge (if off narcotics) . Current Hospital Diet Patient's current hospital diet: Clear Liquid Diet Discharge Diet Recommended Diet: Regular Diet Procedures Procedures Performed: Laparoscopic Appendectomy Pending Studies Studies pending at discharge: no Medical Emergencies . Who to Call and When: Medical Emergencies: If at any time you feel your situation is an emergency, please call 911 immediately. . Non-Emergent Contact Non-Emergency issues call your: Surgeon Contact Number: [phone]. Call to make a f/u appt for 2 wks Call Non-Emergent contact if: temperature is above 101.5, your pain is not controlled, your pain is worsening, your pain is unusual for you, your pain is concerning you, wound has increased drainage, wound has increased redness, wound has increased pain . "Provider Documentation" section prepared by Juliann Villatoro. . VTE Core Measure Inpt VTE Proph given/why not?: SCD's [place] Drug Monitoring Program Search Results: patient reviewed within database, no issues identified
[2017-08-01] MEDS ORDERED: EpHEDrine SULFATE 50MG/5ML SYR ONE (18:02)
--- NOTE | 2017-08-01 18:50 | Anesthesiology Progress Note ---
Anesthesia Post Op Note Date & Time Aug 01, 2017 at 18:50 Vital Signs Pain Intensity: 1 Vital Signs Past 12 Hours Date Time Temp Pulse Resp B/P (MAP) Pulse Ox O2 Delivery O2 Flow Rate FiO2 08/01/17 18:40 36.8 60 16 121/60 96 Nasal Cannula 3 08/01/17 18:25 54 16 124/66 96 Nasal Cannula 3 08/01/17 18:15 57 16 131/66 100 Oxymask 10 08/01/17 18:05 65 16 136/77 100 Oxymask 10 08/01/17 17:55 36.6 70 16 142/68 100 Oxymask 10 08/01/17 16:11 36.2 65 16 134/78 (96) 95 Room Air 08/01/17 15:57 69 18 128/72 98 Room Air 08/01/17 14:16 65 16 133/75 94 Room Air 08/01/17 13:43 71 08/01/17 13:34 73 18 133/72 98 Room Air 08/01/17 12:00 63 18 126/77 96 Room Air 08/01/17 11:16 66 18 128/74 95 Room Air 08/01/17 11:09 95 Room Air 08/01/17 11:00 71 08/01/17 10:39 36.7 79 18 150/86 95 Room Air Notes Mental Status: alert / awake / arousable, participated in evaluation Pt Amnestic to Procedure: Yes Nausea / Vomiting: adequately controlled Pain: adequately controlled Airway Patency, RR, SpO2: stable & adequate BP & HR: stable & adequate Hydration State: stable & adequate Anesthetic Complications: no major complications apparent
[2017-08-01] MEDS: D5W AND 1/2NSS + 20MEQ KCL 1,000 ML IV SCH (20:13)
[2017-08-01] MEDS ORDERED: IV FLUIDS COMPLETED PRN (20:15)
--- NOTE | 2017-08-01 21:13 | OPERATIVE REPORT ---
DATE OF OPERATION: 08/01/2017 PREOPERATIVE DIAGNOSIS: Acute appendicitis. POSTOPERATIVE DIAGNOSIS: Same. OPERATIVE PROCEDURE: Laparoscopic appendectomy. SURGEON: Dr. Juliann Villatoro. ANESTHESIA: General endotracheal anesthesia. ESTIMATED BLOOD LOSS: 5 mL IV FLUIDS: 1400 mL SPECIMENS: Appendix. DRAINS: None. COMPLICATIONS: None. OPERATIVE FINDINGS: A short right colon, very thick, dilated appendix with thickening of the mesentery. Appendix did not have significant periappendiceal inflammation, thickening extended to the base of the cecum. There was no evidence of any other intraabdominal adhesions. INDICATIONS: Mr. Solano is a 72-year-old gentleman who previously underwent exploratory laparotomy for small-bowel obstruction. He now presented with acute appendicitis. He was consented regarding laparoscopic appendectomy, possible open depending on the amount of his adhesive disease. PROCEDURE: The patient received ceftriaxone preoperatively. After the induction of general endotracheal anesthesia, he had placement of sequential compression devices. He was positioned with his left arm tucked. His abdomen was clipped and then sterilely prepped and draped. He was placed in Trendelenburg. A right upper quadrant incision was made and a Veress needle was placed into the peritoneal cavity. This was tested with the saline drop test. Pneumoperitoneum was established. Initial pressure was 2 mmHg and this was taken up to 15 mmHg. A 5 mm trocar was placed. Initial inspection of the abdomen revealed no evidence of any adhesive disease. Thus a 12 mm was placed in the midline just above the umbilicus and then another 5 mm in the left lower quadrant. It was very difficult to find the appendix due to its location more superior than typical, it was also quite short and dilated and diving down along the posterior abdominal wall. The small bowel had to be moved out of the way. We were able to see a very dilated structure blind ending with a very thickened mesentery. The mesentery was sequentially taken with firings of the ROD 45 vascular load stapler. This was followed up towards the appendix attachments on the cecum. The appendix was then removed off the cecum with a small rim of the cecum. This was taken with sequential firings of the ROD 45 purple load stapler. The appendix was placed in an Endobag. It was removed through the umbilical incision. This necessitated extending the incision for just a short distance. The abdomen was irrigated and suctioned clear. The pneumoperitoneum was released. The fascia of the umbilical incision was closed with 0 Vicryl stitches placed in an interrupted fashion. The skin of all 3 incisions was closed with running subcuticular 4-0 Vicryl sutures. Steri-Strip and sterile dressings were applied. He was awakened and taken to recovery in stable condition. I attest to the content of the Intraoperative Record and any orders documented therein. Any exception s are noted below.
[2017-08-02 03:42] VITALS: BP 129/69; PULSE 62; TEMP 37.4; O2SAT 94
[2017-08-02] MEDS ORDERED: CEFTRIAXONE SOD INJ 1 GM in DEXTROSE 5% ADD-VANTAGE 50ML 50 ML IV SCH (04:00)
[2017-08-02] MEDS: D5W AND 1/2NSS + 20MEQ KCL 1,000 ML IV SCH ×2 (04:02→12:00)
[2017-08-02 07:24] VITALS: BP 127/72; PULSE 63; TEMP 37; O2SAT 96
[2017-08-02] MEDS ORDERED: OXYC-57 PO (07:49)
--- NOTE | 2017-08-02 07:51 | Surgery Progress Note ---
Surgery Progress Note Date of Service Aug 02, 2017. Subjective Post OP Day: 1 + feeling well, + ambulating, + pain controlled Objective Vital Signs: Date Time Temp Pulse Resp B/P (MAP) Pulse Ox O2 Delivery O2 Flow Rate FiO2 08/02/17 07:24 37.0 63 17 127/72 (90) 96 Room Air 08/02/17 03:42 37.4 62 16 129/69 (89) 94 Nasal Cannula 2.0 08/01/17 23:48 Nasal Cannula 2.0 08/01/17 22:55 36.6 68 18 148/71 (96) 96 Nasal Cannula 2.0 08/01/17 22:00 36.4 59 18 139/70 (93) 100 Nasal Cannula 2.0 08/01/17 21:00 36.4 64 20 135/68 (90) 98 Nasal Cannula 2.0 08/01/17 20:04 97 Nasal Cannula 2.0 08/01/17 20:03 36.7 57 20 125/72 (89) 94 Nasal Cannula 2.0 08/01/17 19:30 36.5 65 16 130/74 (92) 92 Nasal Cannula 2.0 08/01/17 19:00 36.7 57 20 122/75 (91) 97 Nasal Cannula 2.0 08/01/17 18:40 36.8 60 16 121/60 96 Nasal Cannula 3 08/01/17 18:25 54 16 124/66 96 Nasal Cannula 3 08/01/17 18:15 57 16 131/66 100 Oxymask 10 08/01/17 18:05 65 16 136/77 100 Oxymask 10 08/01/17 17:55 36.6 70 16 142/68 100 Oxymask 10 08/01/17 16:11 36.2 65 16 134/78 (96) 95 Room Air 08/01/17 15:57 69 18 128/72 98 Room Air 08/01/17 14:16 65 16 133/75 94 Room Air 08/01/17 13:43 71 08/01/17 13:34 73 18 133/72 98 Room Air 08/01/17 12:00 63 18 126/77 96 Room Air 08/01/17 11:16 66 18 128/74 95 Room Air 08/01/17 11:09 95 Room Air 08/01/17 11:00 71 08/01/17 10:39 36.7 79 18 150/86 95 Room Air General Appearance: WD/WN, no apparent distress Respiratory/Chest: normal breath sounds, no accessory muscle use Cardiovascular: regular rate, rhythm Abdomen: normal bowel sounds, soft, + distended Incision(s): clean, dry, intact Laboratory Results: Results Past 24 Hours Test 08/01/17 10:55 08/01/17 11:05 Range/Units Urine Color DK YELLOW Urine Appearance CLOUDY CLEAR Urine pH 5.0 4.5-7.5 Urine Specific [place] 1.022 1.000-1.030 Urine Protein NEG NEG Urine Glucose (UA) NEG NEG Urine Ketones NEG NEG Urine Occult Blood NEG NEG Urine Nitrite NEG NEG Urine Bilirubin NEG NEG Urine Urobilinogen NEG NEG Urine Leukocyte Esterase NEG NEG Urine WBC (Auto) 1-5 0-5 /hpf Urine RBC (Auto) 0-4 0-4 /hpf Urine Hyaline Casts (Auto) 1-5 0-5 /lpf Urine Epithelial Cells (Auto) 0-5 0-5 /lpf Urine Bacteria (Auto) NEG NEG White Blood Count 8.52 4.8-10.8 K/uL Red Blood Count 4.56 4.7-6.1 M/uL Hemoglobin 14.1 14.0-18.0 g/dL Hematocrit 44.3 42-52 % Mean Corpuscular Volume 97.1 80-100 fL Mean Corpuscular Hemoglobin 30.9 25-34 pg Mean Corpuscular Hemoglobin Concent 31.8 32-36 g/dl Platelet Count 243 130-400 K/uL Mean Platelet Volume 11.6 7.4-10.4 fL Neutrophils (%) (Auto) 70.0 % Lymphocytes (%) (Auto) 11.3 % Monocytes (%) (Auto) 7.6 % Eosinophils (%) (Auto) 10.2 % Basophils (%) (Auto) 0.4 % Neutrophils # (Auto) 5.97 1.4-6.5 K/uL Lymphocytes # (Auto) 0.96 1.2-3.4 K/uL Monocytes # (Auto) 0.65 0.11-0.59 K/uL Eosinophils # (Auto) 0.87 0-0.5 K/uL Basophils # (Auto) 0.03 0-0.2 K/uL RDW Standard Deviation 49.3 36.4-46.3 fL RDW Coefficient of Variation 13.8 11.5-14.5 % Immature Granulocyte % (Auto) 0.5 % Immature Granulocyte # (Auto) 0.04 0.00-0.02 K/uL Sodium Level 142 136-145 mmol/L Potassium Level 4.4 3.5-5.1 mmol/L Chloride Level 110 98-107 mmol/L Carbon Dioxide Level 26 21-32 mmol/L Anion Gap 6.0 3-11 mmol/L Blood Urea Nitrogen 23 7-18 mg/dl Creatinine 1.10 0.60-1.40 mg/dl Est Creatinine Clear Calc Drug Dose 69.0 ml/min Estimated GFR () 78.4 Estimated GFR (Non- 67.7 BUN/Creatinine Ratio 21.0 10-20 Random Glucose 84 70-99 mg/dl Calcium Level 8.8 8.5-10.1 mg/dl Total Bilirubin 0.7 0.2-1 mg/dl Direct Bilirubin 0-0.2 mg/dl Aspartate Amino Transf (AST/SGOT) 23 15-37 U/L Alanine Aminotransferase (ALT/SGPT) 34 12-78 U/L Alkaline Phosphatase 65 45-117 U/L Troponin I < 0.015 0-0.045 ng/ml Pro-B-Type Natriuretic Peptide 629 0-900 pg/ml Total Protein 6.6 6.4-8.2 gm/dl Albumin 3.6 3.4-5.0 gm/dl Lipase 111 73-393 U/L Chemistry Specimen Hemolysis Assessment & Plan s/p lap appy. Doing well. Will advance diet. If able to tolerate, OK to discharge home later today.
[2017-08-02] MEDS ORDERED: CALCIUM 600MG + VIT D 400 IU TAB PO SCH (09:00)
[2017-08-02] MEDS ORDERED: MULTIVITAMIN TAB PO SCH (09:00)
[2017-08-02] MEDS ORDERED: CYANOCOBALAMIN 500 MCG TAB (VIT B-12) PO SCH (09:00)
[2017-08-02 11:33] VITALS: BP 127/72; PULSE 63; TEMP 37; O2SAT 96
--- NOTE | 2017-08-03 09:47 | Discharge Summary ---
Discharge Summary Date of Service Aug 02, 2017. Admission Date/Reason Aug 01, 2017 at 17:44 Appendicitis. Discharge Date/Disposition Aug 02, 2017 Home Diagnosis Principal Diagnosis: acute appendicitis Procedure(s) Performed laparoscopic appendectomy Medication Reconciliation New Medications: Oxycodone/Acetaminophen 5MG/325MG (Percocet 5MG/325MG) Tab 1-2 TAB PO Q4H PRN for moderate pain (pain scale 4-6), #30 TAB PAIN Continued Medications: Calcium Carbonate-Vitamin D (Calcium + D) 1 Tab Tab 1 TAB PO QAM Cyanocobalamin (Vitamin B-12 1000 Mcg) 1,000 Mcg Tab 1000 MCG PO QAM Multiple Vitamin (Multivitamin) 1 Tab Tab 1 TAB PO QAM Admission Physical Exam As per Admitting History & Physical. Hospital Course Underwent uncomplicated laparoscopic appendectomy. Diet advanced. Pain controlled. Discharged home in stable condition. Discharge Instructions Please refer to the electronic Patient Visit Report (Discharge Instructions) for additional information.
== END 2017-08-02 16:10 | disposition home or self-care (01) ==
LOC: C.EDB 10:39 → C.MSW 17:44 → ENRESERV 18:23
PROVIDERS: ADMIT Surgery; ATTEND Surgery
DX: K35.80 Unspecified acute appendicitis (principal); R01.1 Cardiac murmur, unspecified; E78.5 Hyperlipidemia, unspecified; K58.9 Irritable bowel syndrome, unspecified; Z87.891 Personal history of nicotine dependence

== ENCOUNTER → 2017-08-04 | Outpatient (CLI) | payer BC ==
[~2017-08-04] MED LIST changes: -CHOL1000 PO; -MAGN250T8 PO; +OXYC-57 PO
== END | disposition home or self-care (01) ==
LOC: C.LABPBG 12:40
PROVIDERS: ATTEND Internal Medicine Endocrinology, Diabetes & Metabolism
DX: N25.81 Secondary hyperparathyroidism of renal origin (principal); E55.9 Vitamin D deficiency, unspecified; M81.0 Age-related osteoporosis without current pathological fracture; R35.0 Frequency of micturition

== ENCOUNTER → 2017-11-13 | Outpatient (CLI) | payer BC ==
[2017-11-13 10:56] LABS: HEMATOCRIT 43.4 % (42-52); MEAN CELL VOLUME 95.6 fL (80-100); MEAN CORPUSCULAR HEMOGLOBIN 31.7 pg (25-34); MEAN CORPUSCULAR HGB CONC 33.2 g/dl (32-36); MEAN PLATELET VOLUME 11.4 fL (7.4-10.4); PLATELET COUNT 268 K/uL (130-400); RED BLOOD COUNT 4.54 M/uL (4.7-6.1); WHITE BLOOD COUNT 7.04 K/uL (4.8-10.8)
[2017-11-13 11:24] LABS: ALT/SGPT 32 U/L (12-78); AST/SGOT 16 U/L (15-37); BLOOD UREA NITROGEN 33 mg/dl (7-18); BUN/CREATININE RATIO 30.8 (10-20); CALCIUM 8.9 mg/dl (8.5-10.1); CARBON DIOXIDE 27 mmol/L (21-32); CHLORIDE 105 mmol/L (98-107); CREATININE 1.08 mg/dl (0.60-1.40); GLUCOSE 74 mg/dl (70-99); POTASSIUM 4.8 mmol/L (3.5-5.1); SODIUM 138 mmol/L (136-145)
[2017-11-13 11:27] LABS: ALB/GLOB RATIO 1.3 (0.9-2); ALKALINE PHOSPHATASE 63 U/L (45-117)
== END | disposition home or self-care (01) ==
LOC: C.LAB1850 09:52
PROVIDERS: ATTEND Internal Medicine
DX: K90.0 Celiac disease (principal)

== ENCOUNTER → 2018-01-01 | Day surgery (SDC) | payer BC ==
[2017-12-02 07:48] VITALS: Ht 175.3 cm; Wt 90.9 kg
[~2018-01-01] VITALS: Ht 175.3 cm; Wt 90.9 kg
[~2018-01-01] MED LIST changes: +ACETAMINOPHEN 325 MG TAB PO PRN; +AMVISC PLUS 0.8ML SYRINGE INT OCU ONE; +ATROPINE SULFATE 0.1 MG/ML 5ML SYR IV PRN; +BROM0.07; +BSS FLUSH ONE; -CALC600T9 PO; +CHOL1000 PO; +DIFL0.0519; +EpHEDrine SULFATE INJ 50 MG/ML AMP IV PRN; +EpINEphrine INJ 1MG/ML AMP 1 MG/ML AMP ONE; +GATI0.5S OPR; +LACTATED RINGER'S 1000ML 500 ML IV SCH; +LIDOCAINE 3.5% OPH GEL PER APPLICATION CHARGE ONE; +LIDOCAINE HCL 1% MPF 2 ML VIAL ONE; +MAGN1TAB41 PO; +MIDAZOLAM HCL 1 MG/ML 2ML VIAL ONE; +OCUCOAT 1 ML SOLN IO ONE; -OXYC-57 PO; +POVIDONE-IODINE OP SOLN 30 ML BTL ONE; +PROPARACAINE 0.5% OP SOLN PER DROP CHARGE OPR SCH; +TOBRAMYCIN/DEXAMETHASONE OPH OINT PER APPLN CHARGE ONE
[2018-01-01] MEDS: PHENYLEPHRINE HCL 2.5% OP SOLN PER DROP CHARGE OPR SCH ×2 (07:19→07:27)
[2018-01-01] MEDS: CYCLOPENTOLATE HCL 1% OP SOLN PER DROP CHARGE OPR SCH ×2 (07:20→07:29)
[2018-01-01] MEDS: TROPICAMIDE 1% OP SOLN PER DROP CHARGE OPR SCH ×2 (07:20→07:28)
[2018-01-01] MEDS: KETOROLAC 0.5% OP SOLN PER DROP CHARGE OPR SCH ×2 (07:21→07:30)
[2018-01-01] MEDS: GATIFLOXACIN OP SOLN PER DROP CHARGE OPR SCH ×2 (07:22→07:32)
--- NOTE | 2018-01-01 07:35 | History & Physical Bridge - SC ---
H&P Re-Evaluation Bridge Note: I have examined the patient, reviewed the History & Physical and in the interval since the performance of the History & Physical I have noted the following changes of clinical significance: Diagnosis: Right Cataract Procedure: Right Cataract Removal with Lens Implant No changes noted
--- NOTE | 2018-01-01 08:18 | Discharge Instructions-SurgCtr ---
Discharge Instructions Date of Service Jan 01, 2018. Visit Reason for Visit: Cataract Right Eye Discharge Discharge Diagnosis / Problem: cataract Discharge Goals Goal(s): Improve function Activity Recommendations Activity Limitations: per Instructions/Follow-up section Anesthesia . Post Anesthesia Instructions: If you have had General Anesthesia or IV Sedation: * Do not drive today. * Resume driving when surgeon permits. * Do not make important decisions or sign legal documents today. * Call surgeon for: 1. Temperature elevations greater than 101 degrees F. 2. Uncontrollable pain. 3. Excessive bleeding. 4. Persistent nausea and vomiting. 5. Medication intolerance (nausea, vomiting or rash). * For nausea and vomiting use only clear liquids such as: tea, soda, bouillon until nausea subsides, then gradually increase diet as tolerated. * If you have any concerns or questions, call your surgeon's office. If physician is unavailable and it is an emergency, call 911 or go to the nearest emergency room. . Diet Recommendations Home Diet: resume previous diet Procedures Procedures Performed: Right Eye Cataract Phacoemulsification With Intraocular Lens Implant Pending Studies Studies pending at discharge: no Medical Emergencies . Who to Call and When: Medical Emergencies: If at any time you feel your situation is an emergency, please call 911 immediately. . Non-Emergent Contact Non-Emergency issues call your: Web Content Specialist . . "Provider Documentation" section prepared by Kurt Da Silva. .
--- NOTE | 2018-01-01 08:18 | [facility] Operative Report ---
Operative Report Date of Service Jan 01, 2018. Operative Report 1. PREOPERATIVE DIAGNOSIS: Cataract of the right eye. 2. POSTOPERATIVE DIAGNOSIS: Same. 3. PROCEDURE: Phacoemulsification with intraocular lens implantation of the right eye. SURGEON: Dr. Kurt Da Silva. ANESTHESIA: Topical Lidocaine gel, 1% Non- Preserved intracameral Lidocaine, and monitored intravenous sedation. INDICATIONS FOR THE PROCEDURE: The patient is a 72 - year-old male with a history of cataract of the right eye causing significant visual impairment. The details of the proposed procedure were explained to the patient who asked appropriate questions and following discussion of all risks, benefits and alternatives agreed to have the procedure done. 4. OPERATION AND FINDINGS: DESCRIPTION OF PROCEDURE: After informed consent was obtained, the patient was brought to the Operating [facility] at the [facility]. The patient was placed in a supine position and then the right eye was prepped and draped in the usual sterile fashion for intraocular surgery. A drop of topical Lidocaine gel was placed in the operative eye. A wire lid speculum was then placed in the fornices. A corneal paracentesis was then created temporally. The Non-Preserved Lidocaine was then instilled into the anterior chamber. The anterior chamber was then pressurized with viscoelastic. A 2.0 mm clear corneal incision was then created temporally. A cystotome was inserted into the anterior chamber and used to create a tear in the anterior lens capsule. This capsular tear was then used to create a small flap and the flap was dragged in a counterclockwise direction in order to create a continuous curvilinear capsulorrhexis. Hydrodissection was accomplished with balanced salt solution. Phacoemulsification of the lens nucleus was then performed in a standard [id number]-fwy-[id number] technique. The phaco time was 25 seconds with an average power of 8 %. The remaining cortical material was removed using irrigation aspiration. The capsular bag was then filled with viscoelastic. A [employer]ch [employer] Lomb MI60L +18.0 diopters lens was then loaded into the injector and injected into the capsular bag. The remaining viscoelastic was removed with the irrigation aspiration handpiece. The wound was hydrated and then checked and found to be watertight. The intraocular pressure was checked and found to be adequate. The wire lid speculum was removed and the patient's face was cleaned and dried. TobraDex ointment was placed in the inferior fornix. The patient was discharged to the Recovery Room having tolerated the procedure well. There were no complications. The patient will be seen tomorrow in the office for follow-up. I attest to the content of the Intraoperative Record and any orders documented therein. Any exceptions are noted below.
--- NOTE | 2018-01-01 08:23 | Anesthesia Progress Nt - [facility] ---
Anesthesia Post Op Note Date & Time Jan 01, 2018 at 08:23 Vital Signs Pain Intensity: 0 Vital Signs Past 12 Hours Date Time Temp Pulse Resp B/P (MAP) Pulse Ox O2 Delivery O2 Flow Rate FiO2 01/01/18 07:05 36.8 72 16 142/79 (100) 95 Room Air Notes Mental Status: alert / awake / arousable, participated in evaluation Pt Amnestic to Procedure: Yes Nausea / Vomiting: adequately controlled Pain: adequately controlled Airway Patency, RR, SpO2: stable & adequate BP & HR: stable & adequate Hydration State: stable & adequate Anesthetic Complications: no major complications apparent
[2018-01-01 08:40] VITALS: BP 114/76; PULSE 64; O2SAT 98
== END | disposition home or self-care (01) ==
LOC: X.SURG 06:27
PROVIDERS: ATTEND Ophthalmology
DX: H26.9 Unspecified cataract (principal); G47.33 Obstructive sleep apnea (adult) (pediatric); E66.9 Obesity, unspecified; N40.1 Benign prostatic hyperplasia with lower urinary tract symptoms; N13.8 Other obstructive and reflux uropathy; K90.0 Celiac disease; E78.5 Hyperlipidemia, unspecified; M81.0 Age-related osteoporosis without current pathological fracture; E55.9 Vitamin D deficiency, unspecified; E53.8 Deficiency of other specified B group vitamins; I87.2 Venous insufficiency (chronic) (peripheral); J34.2 Deviated nasal septum; E21.3 Hyperparathyroidism, unspecified; Z90.49 Acquired absence of other specified parts of digestive tract

== ENCOUNTER → 2018-01-13 | Day surgery (SDC) | payer BC ==
[2018-01-08 15:19] VITALS: Ht 175.3 cm; Wt 90.9 kg
[~2018-01-13] VITALS: Ht 175.3 cm; Wt 90.9 kg
[~2018-01-13] MED LIST changes: +500ML BSS 0.3ML EPI 1:1000PF IRRIG ONE; +PROPARACAINE 0.5% OP SOLN PER DROP CHARGE OPL SCH; -PROPARACAINE 0.5% OP SOLN PER DROP CHARGE OPR SCH
[2018-01-13] MEDS: PHENYLEPHRINE HCL 2.5% OP SOLN PER DROP CHARGE OPL SCH ×2 (10:30→10:36)
[2018-01-13] MEDS: TROPICAMIDE 1% OP SOLN PER DROP CHARGE OPL SCH ×2 (10:31→10:37)
[2018-01-13] MEDS: CYCLOPENTOLATE HCL 1% OP SOLN PER DROP CHARGE OPL SCH ×2 (10:32→10:38)
[2018-01-13] MEDS: GATIFLOXACIN OP SOLN PER DROP CHARGE OPL SCH ×2 (10:34→10:43)
[2018-01-13] MEDS: KETOROLAC 0.5% OP SOLN PER DROP CHARGE OPL SCH ×2 (10:34→10:40)
--- NOTE | 2018-01-13 11:01 | History & Physical Bridge - [place] ---
H&P Re-Evaluation Bridge Note: I have examined the patient, reviewed the History & Physical and in the interval since the performance of the History & Physical I have noted the following changes of clinical significance: Diagnosis: Left Cataract Procedure: Left Cataract Removal with Lens Implant No changes noted
--- NOTE | 2018-01-13 11:33 | [facility] Operative Report ---
Operative Report Date of Service Jan 13, 2018. Operative Report 1. PREOPERATIVE DIAGNOSIS: Cataract of the left eye. 2. POSTOPERATIVE DIAGNOSIS: Same. 3. PROCEDURE: Phacoemulsification with intraocular lens implantation of the left eye. SURGEON: Dr. Kurt Da Silva. ANESTHESIA: Topical Lidocaine gel, 1% Non- Preserved intracameral Lidocaine, and monitored intravenous sedation. INDICATIONS FOR THE PROCEDURE: The patient is a 72 - year-old male with a history of cataract of the left eye causing significant visual impairment. The details of the proposed procedure were explained to the patient who asked appropriate questions and following discussion of all risks, benefits and alternatives agreed to have the procedure done. 4. OPERATION AND FINDINGS: DESCRIPTION OF PROCEDURE: After informed consent was obtained, the patient was brought to the Operating Room at the [facility]. The patient was placed in a supine position and then the left eye was prepped and draped in the usual sterile fashion for intraocular surgery. A drop of topical Lidocaine gel was placed in the operative eye. A wire lid speculum was then placed in the fornices. A corneal paracentesis was then created temporally. The Non-Preserved Lidocaine was then instilled into the anterior chamber. The anterior chamber was then pressurized with viscoelastic. A 2.0 mm clear corneal incision was then created temporally. A cystotome was inserted into the anterior chamber and used to create a tear in the anterior lens capsule. This capsular tear was then used to create a small flap and the flap was dragged in a counterclockwise direction in order to create a continuous curvilinear capsulorrhexis. Hydrodissection was accomplished with balanced salt solution. Phacoemulsification of the lens nucleus was then performed in a standard [id number]-dsc-[id number] technique. The phaco time was 23 seconds with an average power of 9 %. The remaining cortical material was removed using irrigation aspiration. The capsular bag was then filled with viscoelastic. A Bausch [employer] Lomb MI60L +18.0 diopters lens was then loaded into the injector and injected into the capsular bag. The remaining viscoelastic was removed with the irrigation aspiration handpiece. The wound was hydrated and then checked and found to be watertight. The intraocular pressure was checked and found to be adequate. The wire lid speculum was removed and the patient's face was cleaned and dried. TobraDex ointment was placed in the inferior fornix. The patient was discharged to the Recovery Room having tolerated the procedure well. There were no complications. The patient will be seen tomorrow in the office for follow-up. I attest to the content of the Intraoperative Record and any orders documented therein. Any exceptions are noted below.
--- NOTE | 2018-01-13 11:34 | Discharge Instructions-SurgCtr ---
Discharge Instructions Date of Service Jan 13, 2018. Visit Reason for Visit: Left Cataract Discharge Discharge Diagnosis / Problem: cataract Discharge Goals Goal(s): Improve function Activity Recommendations Activity Limitations: per Instructions/Follow-up section Anesthesia . Post Anesthesia Instructions: If you have had General Anesthesia or IV Sedation: * Do not drive today. * Resume driving when surgeon permits. * Do not make important decisions or sign legal documents today. * Call surgeon for: 1. Temperature elevations greater than 101 degrees F. 2. Uncontrollable pain. 3. Excessive bleeding. 4. Persistent nausea and vomiting. 5. Medication intolerance (nausea, vomiting or rash). * For nausea and vomiting use only clear liquids such as: tea, soda, bouillon until nausea subsides, then gradually increase diet as tolerated. * If you have any concerns or questions, call your surgeon's office. If physician is unavailable and it is an emergency, call 911 or go to the nearest emergency room. . Diet Recommendations Home Diet: resume previous diet Procedures Procedures Performed: Left Cataract Phacoemulsification With Intraocular Lens Implant Pending Studies Studies pending at discharge: no Medical Emergencies . Who to Call and When: Medical Emergencies: If at any time you feel your situation is an emergency, please call 911 immediately. . Non-Emergent Contact Non-Emergency issues call your: Disintegrator . . "Provider Documentation" section prepared by Kurt Da Silva. .
[2018-01-13 11:37] VITALS: TEMP 36.4
--- NOTE | 2018-01-13 11:47 | Anesthesia Progress Nt - [facility] ---
Anesthesia Post Op Note Date & Time Jan 13, 2018 at 11:47 Vital Signs Pain Intensity: 0 Vital Signs Past 12 Hours Date Time Temp Pulse Resp B/P (MAP) Pulse Ox O2 Delivery O2 Flow Rate FiO2 01/13/18 11:37 36.4 59 18 116/73 (87) 97 Room Air 01/13/18 10:25 37 59 22 136/79 (98) 94 Room Air Notes Mental Status: alert / awake / arousable, participated in evaluation Pt Amnestic to Procedure: Yes Nausea / Vomiting: adequately controlled Pain: adequately controlled Airway Patency, RR, SpO2: stable & adequate BP & HR: stable & adequate Hydration State: stable & adequate Anesthetic Complications: no major complications apparent
[2018-01-13 12:01] VITALS: BP 125/77; PULSE 66; O2SAT 98
== END | disposition home or self-care (01) ==
LOC: X.SURG 10:10
PROVIDERS: ATTEND Ophthalmology
DX: H26.9 Unspecified cataract (principal); E55.9 Vitamin D deficiency, unspecified; E53.8 Deficiency of other specified B group vitamins; Z79.899 Other long term (current) drug therapy

== ENCOUNTER → 2018-02-09 | Outpatient (CLI) | payer BC ==
[~2018-02-09] MED LIST changes: -500ML BSS 0.3ML EPI 1:1000PF IRRIG ONE; -ACETAMINOPHEN 325 MG TAB PO PRN; -AMVISC PLUS 0.8ML SYRINGE INT OCU ONE; -ATROPINE SULFATE 0.1 MG/ML 5ML SYR IV PRN; -BROM0.07; -BSS FLUSH ONE; -DIFL0.0519; -EpHEDrine SULFATE INJ 50 MG/ML AMP IV PRN; -EpINEphrine INJ 1MG/ML AMP 1 MG/ML AMP ONE; -GATI0.5S OPR; -LACTATED RINGER'S 1000ML 500 ML IV SCH; -LIDOCAINE 3.5% OPH GEL PER APPLICATION CHARGE ONE; -LIDOCAINE HCL 1% MPF 2 ML VIAL ONE; -MIDAZOLAM HCL 1 MG/ML 2ML VIAL ONE; -OCUCOAT 1 ML SOLN IO ONE; -POVIDONE-IODINE OP SOLN 30 ML BTL ONE; -PROPARACAINE 0.5% OP SOLN PER DROP CHARGE OPL SCH; -TOBRAMYCIN/DEXAMETHASONE OPH OINT PER APPLN CHARGE ONE
[2018-02-09 13:09] LABS: BASO % 0.5 %; BASO ABS # 0.04 K/uL (0-0.2); EOS % 12.8 %; HEMATOCRIT 46.8 % (42-52); IG# 0.04 K/uL (0.00-0.02); LYMPH % 17.5 %; LYMPH ABS # 1.37 K/uL (1.2-3.4); MEAN CELL VOLUME 94.5 fL (80-100); MEAN CORPUSCULAR HEMOGLOBIN 32.3 pg (25-34); MEAN CORPUSCULAR HGB CONC 34.2 g/dl (32-36); MEAN PLATELET VOLUME 11.3 fL (7.4-10.4); MONO % 7.9 %; MONO ABS # 0.62 K/uL (0.11-0.59); NEUT % 60.8 %; NEUT ABS # 4.75 K/uL (1.4-6.5); PLATELET COUNT 287 K/uL (130-400); RED CELL DISTRIBUTION WIDTH CV 13.3 % (11.5-14.5); RED CELL DISTRIBUTION WIDTH SD 45.7 fL (36.4-46.3); WHITE BLOOD COUNT 7.82 K/uL (4.8-10.8)
[2018-02-09 16:58] LABS: BLOOD UREA NITROGEN 44 mg/dl (7-18); CALCIUM 8.8 mg/dl (8.5-10.1); CARBON DIOXIDE 30 mmol/L (21-32); CREATININE 1.25 mg/dl (0.60-1.40); GLUCOSE 92 mg/dl (70-99); POTASSIUM 4.7 mmol/L (3.5-5.1); SODIUM 137 mmol/L (136-145)
[2018-02-09 17:02] LABS: CHOLESTEROL 134 mg/dl (0-200); LDL CHOLESTEROL CALCULATED 78 mg/dl
== END | disposition home or self-care (01) ==
LOC: C.LABPBG 11:11
PROVIDERS: ATTEND Internal Medicine
DX: E78.5 Hyperlipidemia, unspecified (principal); N40.1 Benign prostatic hyperplasia with lower urinary tract symptoms; N25.81 Secondary hyperparathyroidism of renal origin; E55.9 Vitamin D deficiency, unspecified; M81.0 Age-related osteoporosis without current pathological fracture

== ENCOUNTER → 2018-02-24 | Day surgery (SDC) | payer BC ==
[2018-01-21 16:33] VITALS: BMI 31.0
[~2018-02-24] VITALS: Ht 175.3 cm; Wt 95.0 kg
[~2018-02-24] MED LIST changes: +ACETAMINOPHEN 325 MG TAB PO PRN; +ATROPINE SULFATE 0.1 MG/ML 5ML SYR IV PRN; +CIPR-255 PO; +CIPROFLOXACIN / D5W 400 MG IV SCH; +EpHEDrine SULFATE INJ 50 MG/ML AMP IV PRN; +FENTANYL CITRATE INJ 50 MCG/1 ML 2 ML VIAL IV PRN; +FENTANYL CITRATE INJ 50 MCG/1 ML 2 ML VIAL ONE; +HYDR-5688 PO; +HYDROCODONE/ACETAMIN 5/325MG TAB PO PRN; +KETAMINE HCL INJ 50 MG/ML 10 ML VIAL ONE; +LACTATED RINGER'S 1000ML 1,000 ML IV SCH; +LIDOCAINE HCL 2% 2 ML VIAL (20MG/ML) ONE; +MIDAZOLAM HCL 1 MG/ML 2ML VIAL ONE; +ONDANSETRON INJ 2 MG/ML 2 ML VIAL IV PRN; +PHEN95TA14 PO; +PROPOFOL IV EMULSION 10 MG/ML 20 ML VIAL IV ONE; +SODIUM CHLORIDE 0.9% 1000ML 1,000 ML IV SCH; +SODIUM CHLORIDE 0.9% INJ 10 ML VIAL ONE
[2018-02-24 10:44] VITALS: BP 149/80; PULSE 62; TEMP 36.6; O2SAT 97; Ht 175.3 cm; Wt 95.0 kg
--- NOTE | 2018-02-24 11:04 | History & Physical Bridge Note ---
H&P Re-Evaluation Bridge Note: I have examined the patient, reviewed the History & Physical and in the interval since the performance of the History & Physical I have noted the following changes of clinical significance: No changes noted
--- NOTE | 2018-02-24 11:27 | Discharge Instructions ---
Discharge Instructions Date of Service Feb 24, 2018. Admission Reason for Admission: Benign Prostatic Hypertrophy Discharge Discharge Diagnosis / Problem: BPH Discharge Goals Goal(s): Decrease discomfort, Improve function, Increase independence, Improve disease control, Prevent Disease Progression Activity Recommendations Activity Limitations: resume your previous activity Lifting Limitations: none Exercise/Sports Limitations: none May Resume Sexual Activity: when tolerated Shower/Bathe: no limitations Driving or Machine Use: resume 1 day after discharge Please resume all normal activities as tolerated. If you see blood in your urine , please stay well hydrated to help dilute the urine. If you are unable to urinate, please call Dr. Wilkinson's office or report to the emergency room. . Instructions / Follow-Up Instructions / Follow-Up Please keep your previously scheduled follow up appointment. Current Hospital Diet Patient's current hospital diet: Discharge Diet Recommended Diet: Regular Diet Pending Studies Studies pending at discharge: no Laboratory Results Lipid Panel Test 02/09/18 11:14 Range/Units Triglycerides Level 80 0-150 mg/dl Cholesterol Level 134 0-200 mg/dl HDL Cholesterol 40 mg/dl Cholesterol/HDL Ratio 3.4 LDL Cholesterol, Calculated 78 mg/dl Medical Emergencies . Who to Call and When: Medical Emergencies: If at any time you feel your situation is an emergency, please call 911 immediately. . Non-Emergent Contact Non-Emergency issues call your: Urologist Call Non-Emergent contact if: you have a fever, temperature is above 101.5, your pain is not controlled, your pain is worsening . . "Provider Documentation" section prepared by Edy Solorzano. . [place] Drug Monitoring Program Search Results: patient reviewed within database, no issues identified
--- NOTE | 2018-02-24 11:50 | [facility] Operative Report ---
Operative Report Operative Date Feb 24, 2018. Pre-Operative Diagnosis benign prostatic hyperplasia Post-Operative Diagnosis same as preop Procedure(s) Performed Cystoscopy, Urolift Surgeon Dr. Kristofer Wilkinson Plate Stacker Surgeon(s) None Estimated Blood Loss 0 mL Findings Lateral lobe hypertrophy Specimens none per surgeon Drains None Anesthesia Type MAC Complication(s) none Disposition yes Recovery Room / PACU Indications Voiding dysfunction Description of Procedure Patient was identified in the preoperative holding area, appropriate informed consents were reviewed and completed and the patient was transported to the operating suite. Upon arrival he received appropriate preoperative antibiotics in the form of ciprofloxacin. Adequate sedation was achieved, and he was placed in dorsal lithotomy position where he was sterilely prepped and draped in standard fashion. I began the case by passing a cystoscope with 0 lens. Inspection of the urethra revealed healthy-appearing mucosa without evidence of strictures. Prostate was inspected, and he was noted to have lateral lobe hypertrophy. Full inspection of the bladder was carried out. There were no tumors, stones, or other abnormalities. I then exchanged visual obturator for the first uro-lift device. The first suture was deployed on the right side of the prostate approximately 1 cm in from the bladder neck. A mirror image suture was then deployed on the left. A third suture was placed adjacent to the verumontanum on the right. A fourth suture was placed in a mirror image of this location on the left. There was excellent hemostasis. I reinspected the bladder and prostate and confirmed an excellent anterior channel. He was reversed from anesthesia and taken to the recovery room in stable condition. I attest to the content of the Intraoperative Record and any orders documented therein. Any exceptions are noted below.
[2018-02-24 11:55] VITALS: BP 119/71; PULSE 71; TEMP 36.3; O2SAT 93
[2018-02-24 12:25] VITALS: BP 138/76; PULSE 62; TEMP 36.2; O2SAT 98
--- NOTE | 2018-02-24 13:53 | Anesthesiology Progress Note ---
Anesthesia Post Op Note Date & Time Feb 24, 2018 at 13:52 Vital Signs Pain Intensity: 0 Vital Signs Past 12 Hours Date Time Temp Pulse Resp B/P (MAP) Pulse Ox O2 Delivery O2 Flow Rate FiO2 02/24/18 12:25 36.2 62 18 138/76 98 Room Air 02/24/18 11:55 36.3 71 18 119/71 93 Room Air 02/24/18 10:44 36.6 62 18 149/80 (103) 97 Room Air Notes Mental Status: alert / awake / arousable, participated in evaluation Pt Amnestic to Procedure: Yes Nausea / Vomiting: adequately controlled Pain: adequately controlled Airway Patency, RR, SpO2: stable & adequate BP & HR: stable & adequate Hydration State: stable & adequate Anesthetic Complications: no major complications apparent
== END | disposition home or self-care (01) ==
LOC: C.ACU 10:12
PROVIDERS: ATTEND Urology
DX: N40.1 Benign prostatic hyperplasia with lower urinary tract symptoms (principal); N13.8 Other obstructive and reflux uropathy; N52.9 Male erectile dysfunction, unspecified; E78.5 Hyperlipidemia, unspecified; G47.33 Obstructive sleep apnea (adult) (pediatric); M81.0 Age-related osteoporosis without current pathological fracture; N25.81 Secondary hyperparathyroidism of renal origin; Z87.81 Personal history of (healed) traumatic fracture; Z90.89 Acquired absence of other organs; Z98.49 Cataract extraction status, unspecified eye; Z82.49 Family history of ischemic heart disease and other diseases of the circulatory system; Z80.0 Family history of malignant neoplasm of digestive organs; Z87.891 Personal history of nicotine dependence

== ENCOUNTER → 2018-03-03 | Outpatient (CLI) | payer BC ==
[~2018-03-03] MED LIST changes: -ACETAMINOPHEN 325 MG TAB PO PRN; -ATROPINE SULFATE 0.1 MG/ML 5ML SYR IV PRN; -CIPROFLOXACIN / D5W 400 MG IV SCH; -EpHEDrine SULFATE INJ 50 MG/ML AMP IV PRN; -FENTANYL CITRATE INJ 50 MCG/1 ML 2 ML VIAL IV PRN; -FENTANYL CITRATE INJ 50 MCG/1 ML 2 ML VIAL ONE; -HYDROCODONE/ACETAMIN 5/325MG TAB PO PRN; -KETAMINE HCL INJ 50 MG/ML 10 ML VIAL ONE; -LACTATED RINGER'S 1000ML 1,000 ML IV SCH; -LIDOCAINE HCL 2% 2 ML VIAL (20MG/ML) ONE; -MIDAZOLAM HCL 1 MG/ML 2ML VIAL ONE; -ONDANSETRON INJ 2 MG/ML 2 ML VIAL IV PRN; -PROPOFOL IV EMULSION 10 MG/ML 20 ML VIAL IV ONE; -SODIUM CHLORIDE 0.9% 1000ML 1,000 ML IV SCH; -SODIUM CHLORIDE 0.9% INJ 10 ML VIAL ONE
== END | disposition home or self-care (01) ==
LOC: C.LABSPEC 16:52
PROVIDERS: ATTEND Urology
DX: R35.0 Frequency of micturition (principal)

== ENCOUNTER → 2018-04-02 | Outpatient (CLI) | payer BC ==
[2018-04-02 13:31] LABS: ALBUMIN 3.7 gm/dl (3.4-5.0); CALCIUM 8.9 mg/dl (8.5-10.1); CREATININE 1.16 mg/dl (0.60-1.40)
== END | disposition home or self-care (01) ==
LOC: C.LABPBG 07:43
PROVIDERS: ATTEND Internal Medicine Endocrinology, Diabetes & Metabolism
DX: M81.0 Age-related osteoporosis without current pathological fracture (principal)